=== PATIENT | female | born 1960 | race Caucasian/White ===

== ENCOUNTER → 2018-06-25 10:08 | Outpatient (CLI) | payer BC, SELFPAY ==
--- NOTE | 2018-06-25 10:05 | DI.REPORT_ITS ---
SYMPTOM/DIAGNOSIS: RT KNEE INJURY RIGHT KNEE: Three views. No acute fracture or dislocation is identified. No radiopaque foreign bodies are seen in the soft tissues. IMPRESSION: No acute abnormality.
== END ==
PROVIDERS: PCP Internal Medicine; Visit Provider Physician Assistant
DX: M25.561 Pain in right knee (principal); S89.91XA Unspecified injury of right lower leg, initial encounter
CPT/HCPCS: 73562

== ENCOUNTER 2018-09-15 14:20 | Outpatient (CLI) | payer BC, SELFPAY ==
--- NOTE | 2018-09-15 14:15 | DI.RAD_ITS ---
SYMPTOMS/DIAGNOSIS: KNEE PAIN LEFT KNEE: The femoral tibial joint spaces are well maintained. There is minimal periarticular spurring. There is mild spurring at the articular aspect of the patella. No joint effusion is visible. IMPRESSION: Minimal degenerative changes.
== END 2018-09-15 14:40 ==
PROVIDERS: PCP Internal Medicine; Visit Provider Physician Assistant Surgical
DX: M25.562 Pain in left knee (principal); M17.12 Unilateral primary osteoarthritis, left knee
CPT/HCPCS: 73562

== ENCOUNTER 2018-12-09 11:18 | Outpatient (REF) | payer BC, SELFPAY | END 2018-12-09 11:38 | LOC: LBN 11:18 | PROVIDERS: PCP Internal Medicine; Visit Provider Family Medicine | DX: J06.9 Acute upper respiratory infection, unspecified (principal) | CPT/HCPCS: 87449 ==

== ENCOUNTER 2019-01-13 00:14 | Outpatient (CLI) | payer BC, SELFPAY ==
--- NOTE | 2019-01-13 11:17 | DI.MAMMO_ITS ---
SYMPTOM/DIAGNOSIS: SCREENING, Z12.31 MAMMOGRAMS: Mammograms were interpreted according to the usual protocol including computer analysis with CAD system, tomosynthesis and C view imaging. Comparison with prior examinations. Breast density A. No suspicious masses or microcalcifications are seen. There is no definite evidence of malignancy. IMPRESSION: Negative mammogram. Routine screening is recommended. Category I. MQSA ASSESSMENT OF FINDINGS: Negative. Category 1. Patient will receive a letter notifying them of these results. BI-RAD category A. The breasts are almost entirely fatty.
== END 2019-01-13 00:34 ==
PROVIDERS: PCP Internal Medicine; Visit Provider Obstetrics & Gynecology Gynecology
DX: Z12.31 Encounter for screening mammogram for malignant neoplasm of breast (principal)
CPT/HCPCS: 77063; 77067

== ENCOUNTER 2020-04-12 01:37 | Outpatient (CLI) | payer BC, SELFPAY ==
--- NOTE | 2020-04-12 07:45 | DI.MAMMO_ITS ---
EXAM: MG MAMMO SCREENING CLINICAL HISTORY: screening, TECHNIQUE: Bilateral full field digital CC and MLO mammographic images were obtained with 3D tomosyn thesis and utilizing computer aided detection (CAD). COMPARISON: Available for comparison. FINDINGS: Masses/Architectural Distortion: None seen. Microcalcifications: No suspicious pleomorphic-type are seen. Skin Thickening/Nipple Retraction: None. IMPRESSION: 1. No significant interval change with no specific features of malignancy noted. 2. Unless there is more urgent need, screening mammography is recommended, as per [employer] guidelines. BI-RADS Category 1 - Negative Breast Density - Category A - Almost entirely fatty A negative radiographic report should not delay biopsy if a dominant or clinically suspicious mass is present. Up to ten percent of cancers are not identified on mammography. A negative report may reinforce clinical impression. Adenosis and dense breasts may obscure an underlying neoplasm. False positive reports average 6 to 10%. Patient will receive a letter notifying them of these results.
== END 2020-04-12 01:57 ==
PROVIDERS: PCP Nurse Practitioner; Visit Provider Obstetrics & Gynecology
DX: Z12.31 Encounter for screening mammogram for malignant neoplasm of breast (principal)
CPT/HCPCS: 77063; 77067

== ENCOUNTER 2021-01-12 02:33 | Outpatient (CLI) | payer BC, SELFPAY ==
[2021-01-13 13:42] LABS: COVID-19 RT-PCR UVMMC Result Negative (Negative)
== END 2021-01-12 02:34 | disposition home or self-care (01) ==
LOC: LBO 02:34
PROVIDERS: PCP Nurse Practitioner; Visit Provider Nurse Practitioner
DX: Z20.822 Contact with and (suspected) exposure to COVID-19 (principal)
CPT/HCPCS: U0003

== ENCOUNTER 2021-02-01 03:17 | Outpatient (CLI) | payer BC, SELFPAY ==
[2021-02-02 13:19] LABS: COVID-19 RT-PCR UVMMC Result Negative (Negative)
== END 2021-02-01 03:18 | disposition home or self-care (01) ==
LOC: LBO 03:18
PROVIDERS: PCP Nurse Practitioner; Visit Provider Nurse Practitioner
DX: Z20.822 Contact with and (suspected) exposure to COVID-19 (principal)
CPT/HCPCS: U0003

== ENCOUNTER 2021-04-10 02:48 | Outpatient (CLI) | payer BC, SELFPAY ==
[2021-04-11 13:24] LABS: COVID-19 RT-PCR UVMMC Result Negative (Negative)
== END 2021-04-10 02:49 | disposition home or self-care (01) ==
LOC: LBO 02:48
PROVIDERS: PCP Nurse Practitioner; Visit Provider Nurse Practitioner
DX: Z20.822 Contact with and (suspected) exposure to COVID-19 (principal)
CPT/HCPCS: U0003

== ENCOUNTER 2021-07-01 15:00 | Emergency (ER) | payer BC, SELFPAY ==
[2021-07-01 15:07] VITALS: BP 142/55; PULSE 92; RESP 18; TEMP 37.1; O2SAT 96
--- NOTE | 2021-07-01 15:07 | ED.GENADUL_ITS ---
Discharge Plan Disposition Patient Disposition: HOME Condition: Stable Discharge Details Clinical Impression: Hypokalemia, Vomiting, Epigastric abdominal pain, Cholelithiasis, Cellulitis of left ankle Primary Care Provider: Rosa Elena Weir ED Provider: Betsey Lucio Home Meds and New Rx's Prescriptions: New sucralfate [Carafate] 1 gram tablet 1 gm PO QACHS Qty: 14 RF: 0 doxycycline hyclate 100 mg tablet 100 mg PO BID 7 Days Qty: 14 RF: 0 Continued (DME) Aerochamber Mini spacer See Dose Instructions .ROUTE .MEDSUPPLY Qty: 1 RF: 0 cyanocobalamin (vitamin B-12) [Vitamin B-12] 1,000 MCG tablet 1,000 mcg PO DAILY RF: 0 lysine 500 MG tablet 500 mg PO DAILY RF: 0 cholecalciferol (vitamin D3) [Vitamin D3] 2,000 UNIT capsule 2,000 unit PO DAILY RF: 0 multivitamin [Daily Multi-Vitamin] 1 EACH tablet 1 ea PO DAILY Qty: 1 RF: 0 albuterol sulfate [ProAir HFA] 90 mcg/actuation HFA aerosol inhaler 1 - 2 puff Inhalation Q4H PRN Qty: 1 RF: 0 budesonide-formoterol [Symbicort] 160-4.5 mcg/actuation HFA aerosol inhaler 2 puff Inhalation BID Qty: 1 RF: 11 losartan 50 mg tablet 50 mg PO DAILY Qty: 90 RF: 4 scopolamine base 1 mg over 3 days patch 3 day 1 patch transdermal Q3D PRN (Reason: nausea and vomiting) Qty: 4 RF: 0 Discharge Instructions Instructions: Cellulitis (ED), Hypokalemia (ED), Epigastric Pain (ED) Additional Instructions: Avoid high fat or fried foods while you are symptoms of indigestion, nausea, and abdominal pain are still present. Take [id number] Prilosec once daily for the next 2 weeks. Take the Carafate prescription as directed. Take the antibiotic prescription as directed until finished. Continue to mon itor your ankle pain and redness. If it worsens, return to the emergency department for reevaluation. Your liver function tests were elevated today. Follow-up with your primary care doctor for recheck of these enzymes. Your potassium level was low today. This may be due to your losartan and your recent vomiting. You can supplement potassium in your diet with bananas, tomatoes, spinach, kale, garlic etc. Call your primary care doctor's office tomorrow to schedule a follow-up appointment for reevaluation and for referral to surgery for further evaluation of your epigastric pain and indigestion. If your symptoms persist or worsen, you may need an upper endoscopy. Return immediately to the emergency department if you develop any worsening or new concerning symptoms. Referrals: Margarita Rae DO [OSTEOPATHIC DOCTOR] - Discharge Data Discharge Date/Time-TO BE ENTERED AT DEPARTURE: 07/01/21 19:30 Discharge Physician: Betsey Lucio Medical Decision Making 60yo F with a history of morbid obesity, hypertension, hyperlipidemia, and tubal ligation who presents to the ED w/ vomiting and epigastric pain for 2 days, now with belching and and sensation of indigestion for the past 4 days in addition to a left ankle lesion with worsening surrounding redness for the past few days. Patient appears comfortable. Abdomen is soft and minimally tender in the left upper quadrant. Her lungs are clear. Her left ankle lesion does note some white discoloration in the center with surrounding erythema consistent with cellulitis. There is no evidence of fluctuance consistent with abscess. For her belching and indigestion, considering her age and history an EKG was obtained which notes a rate of 89, sinus, no STEMI and nondiagnostic. Will obtain screening labs, CT chest abdomen and pelvis and give Pepcid, GI cocktail and Carafate and reassess. For her left ankle lesion, I do suspect a cellulitis but unclear if this is secondary to an insect bite. Will obtain repeat ESR and CRP and left ankle x-ray. Labs reviewed. White blood cell count normal. ESR 53. CRP 10.62. Potassium low at 2.7, likely secondary to her losartan, will replete. Mild elevation of LFTs which has been much higher 10 years ago and then normalized. Troponin negative. Lipase normal. Left ankle X-ray unremarkable. CT chest negative. CT abdomen pelvis notes cholelithiasis but no cholecystitis with a 12 mm indeterminate liver lesion. Results discussed with patient. She states she feels much better and feels good to go home. Her allergy list noted IV and oral contrast. She denies any history of anaphylaxis to this and states it was GI symptoms 40 years ago. She agreed with proceeding with the CT and had no adverse reaction. Her chart notes an allergy to sulfa and Keflex. Patient states she does not want a strong antibiotic due to concern for worsening GI symptoms. We will treat the left ankle cellulitis with doxycycline. She is advised on dietary rec ommendations for potassium supplementation. Advised to follow up with the primary care doctor for re-evaluation. Usual and customary return precautions given prior to discharge. Medical Records Medical records reviewed: Yes I reviewed the patient's medical records. Imaging Data Radiologic Study: Radiologist's impression: CT Chest With Contrast; Diagnostic Exam date and time: 07/01/2021 4:01 PM Age: 60 years old Clinical indication: Patient HX: Indigestion, ruq/epigastric pain. R/O cholecystitis, gastritis TECHNIQUE: Imaging protocol: Diagnostic computed tomography of the chest with contrast. 3D rendering (Not supervised by radiologist): MIP and/or 3D reconstructed images were created by the technologist. Radiation optimization: All CT scans at this facility use at least one of these dose optimization techniques: automated exposure control; mA and/or kV adjustment per patient size (includes targeted exams where dose is matched to clinical indication); or iterative reconstruction. Contrast material: OMNIPAQUE; Contrast volume: 100 ml; Contrast route: INTRAVENOUS (IV); COMPARISON: No relevant prior studies available. FINDINGS: Lungs: No nodules. No consolidation. No masses. Pleural spaces: Unremarkable. No pneumothorax. No pleural effusion. Heart: Unremarkable. No cardiomegaly. No pericardial effusion. Aorta: Unremarkable. No aortic aneurysm or dissection. Lymph nodes: Unremarkable. No enlarged lymph nodes. Bones/joints: Unremarkable. No acute fracture. Soft tissues: Unremarkable. IMPRESSION: Unremarkable CT of the chest. CT Abdomen And Pelvis With Contrast Exam date and time: 07/01/2021 4:01 PM Age: 60 years old Clinical indication: Patient HX: Indigestion, ruq/epigastric pain. R/O cholecystitis, gastritis TECHNIQUE: Imaging protocol: Computed tomography of the abdomen and pelvis with contrast. 3D rendering (Not supervised by radiologist): MIP and/or 3D reconstructed images were created by the technologist. Radiation optimization: All CT scans at this facility use at least one of these dose optimization techniques: automated exposure control; mA and/or kV adjustment per patient size (includes targeted exams where dose is matched to clinical indication); or iterative reconstruction. Contrast material: OMNIPAQUE; Contrast volume: 100 ml; Contrast route: INTRAVENOUS (IV); COMPARISON: No relevant prior studies available. FINDINGS: Lungs: The visualized lung bases are clear. Liver: There is a 12 mm indeterminate low-density lesion in the posterior dome of the liver measuring over 30 Hounsfield units in attenuation. Gallbladder and bile ducts: A gallstone is present. No evidence for gallbladder wall thickening. Pancreas: Unremarkable. No ductal dilation. Spleen: Unremarkable. No splenomegaly. Adrenal glands: Unremarkable. No mass. Kidneys and ureters: Unremarkable. No hydronephrosis. No evidence for nephrolithiasis. Stomach and bowel: Unremarkable. No obstruction. No mucosal thickening. Appendix: No evidence of appendicitis. Intraperitoneal space: Unremarkable. No free air. No significant fluid collection. Vasculature: Unremarkable. No abdominal aortic aneurysm. Lymph nodes: Unremarkable. No enlarged lymph nodes. Urinary bladder: Unremarkable as visualized. Reproductive: Unremarkable as visualized. Bones/joints: Unremarkable. No acute fracture. Soft tissues: Unremarkable. IMPRESSION: 1. Cholelithiasis. No evidence for acute cholecystitis. 2. Indeterminate 12 mm low-density lesion in the dome of the liver. This can be further evaluated with dedicated contrast-enhanced CT with liver protocol. XR Left Ankle Exam date and time: 07/01/2021 4:09 PM Age: 60 years old Clinical indication: Other: Cellulitis vs osteomyelitis TECHNIQUE: Imaging protocol: XR Left ankle. Views: 3 or more views. COMPARISON: No relevant studies available. FINDINGS: Bones/joints: No evidence for a fracture. Alignment is anatomic. The joint spaces are preserved. The ankle mortise is congruent. Soft tissues: Unremarkable. IMPRESSION: Unremarkable radiographic study. No bony changes to suggest osteomyelitis. However, if this is of clinical concern, recommend MRI. Lab Data Lab results reviewed: Yes I reviewed the patient's lab results. Labs: Laboratory Tests Range/Units 07/01/21 07/01/21 07/01/21 15:30 15:30 15:30 WBC (4.4-10.8) 10^3/uL RBC (3.93-5.22) 10^6/uL Hgb (11.2-15.7) g/dL Hct (36.0-46.0) % MCV (80-95) fL MCH (27.0-33.0) pg MCHC (32.0-36.0) % RDW (11.7-14.6) % Plt Count (130-400) 10^3/uL MPV (8.0-11.0) fL Immature Gran % Neutrophils % Lymphocytes % Monocytes % Eosinophils % Basophils % Nucleated RBC % % Absolute Neutrophils (1.2-6.7) 10^3/uL Absolute Lymphocytes (1.2-3.4) 10^3/uL Absolute Monocytes (0.1-0.8) 10^3/uL Absolute Eosinophils (0.0-0.7) 10^3/uL Absolute Basophils (0.0-0.2) 10^3/uL ESR (0-30) mm/hr 53 H Sodium (136-145) mmol/L 138 Potassium (3.5-5.1) mmol/L 2.7 L* Chloride (98-107) mmol/L 102 Carbon Dioxide (21.0-32.0) mmol/L 26.8 Anion Gap (3-11) mmol/L 9.2 BUN (7-18) mg/dL 16 Creatinine (0.55-1.02) mg/dL 0.8 Estimated GFR/1.73 m2 (mL/min/1.73m2) >= 60.00 Glucose (74-106) mg/dL 126 H Calcium (8.5-10.1) mg/dL 9.0 Magnesium (1.8-2.4) mg/dL 2.0 Total Bilirubin (0.2-1.0) mg/dL 0.4 AST (15-37) U/L 41 H ALT (14-59) U/L 100 H Alkaline Phosphatase (46-116) U/L 145 H Troponin I (<0.06) ng/mL < 0.05 C-Reactive Protein (0.0-0.3) mg/dL 10.62 H Total Protein (6.4-8.2) g/dL 7.1 Albumin (3.4-5.0) g/dL 3.1 L Lipase (73-393) U/L 119 Range/Units 07/01/21 15:30 WBC (4.4-10.8) 10^3/uL 8.43 RBC (3.93-5.22) 10^6/uL 4.42 Hgb (11.2-15.7) g/dL 13.6 Hct (36.0-46.0) % 40.0 MCV (80-95) fL 90.5 MCH (27.0-33.0) pg 30.8 MCHC (32.0-36.0) % 34.0 RDW (11.7-14.6) % 12.7 Plt Count (130-400) 10^3/uL 223 MPV (8.0-11.0) fL 10.6 Immature Gran % 0.2 Neutrophils % 71.7 Lymphocytes % 17.7 Monocytes % 8.2 Eosinophils % 1.5 Basophils % 0.7 Nucleated RBC % % 0 Absolute Neutrophils (1.2-6.7) 10^3/uL 6.04 Absolute Lymphocytes (1.2-3.4) 10^3/uL 1.49 Absolute Monocytes (0.1-0.8) 10^3/uL 0.69 Absolute Eosinophils (0.0-0.7) 10^3/uL 0.13 Absolute Basophils (0.0-0.2) 10^3/uL 0.06 ESR (0-30) mm/hr Sodium (136-145) mmol/L Potassium (3.5-5.1) mmol/L Chloride (98-107) mmol/L Carbon Dioxide (21.0-32.0) mmol/L Anion Gap (3-11) mmol/L BUN (7-18) mg/dL Creatinine (0.55-1.02) mg/dL Estimated GFR/1.73 m2 (mL/min/1.73m2) Glucose (74-106) mg/dL Calcium (8.5-10.1) mg/dL Magnesium (1.8-2.4) mg/dL Total Bilirubin (0.2-1.0) mg/dL AST (15-37) U/L ALT (14-59) U/L Alkaline Phosphatase (46-116) U/L Troponin I (<0.06) ng/mL C-Reactive Protein (0.0-0.3) mg/dL Total Protein (6.4-8.2) g/dL Albumin (3.4-5.0) g/dL Lipase (73-393) U/L ECG Data Attestation: I personally reviewed and interpreted this ECG (s) as follows: Interpretation: Rate of 89, sinus. T wave inversion in lead III. No acute ST elevation or depression. MS 143. QTc 420. QRS 94. HPI General Mode of arrival: ambulatory . Date/Time Provider Initiated Documentation: 07/01/21 15:07 . Limitations to Documentation: no limitations . Information obtained by: patient . HPI Narrative: Patient is a 60-year-old female with a history of obesity, hypertension, and tubal ligation who presents to the ED with 2 complaints, 1) indigestion, belching, epigastric pain and vomiting for the past week, and 2) possible insect bite to her left ankle over the past week. Patient states she traveled to [place] last week and noted that she had a red tender bump to her left medial ankle which has been progressed with increased redness and pain. She states she did not see an insect bite her but she is unsure of the cause. She is also complaining of 2 days of vomiting which mainly consisted of bile and for the past 4 days has been dry heaving with nausea. She admits to epigastric pain a few days ago that has since resolved. She denies any radiation of pain to her chest or back. She states she has had normal bowel movements without rectal bleeding. She states prior to onset of her symptoms last week she had fried food including an Egg McMuffin, and chocolate dessert. She denies any known fever, difficulty breathing or diarrhea. Related Data Home Medications Medication Instructions Recorded Confirmed cyanocobalamin (vitamin B-12) 1,000 mcg PO DAILY 04/21/13 07/01/21 [Vitamin B-12] lysine 500 mg PO DAILY 04/21/13 07/01/21 cholecalciferol (vitamin D3) 2,000 unit PO DAILY 02/02/14 07/01/21 [Vitamin D3] multivitamin [Daily Multi-Vitamin] 1 ea PO DAILY #1 09/03/17 07/01/21 inhalational spacing device #1 each 12/09/18 07/01/21 albuterol sulfate 90 mcg/actuation 1 - 2 puff INHALATION Q4H PRN #1 05/23/20 07/01/21 aerosol inhaler inhaler budesonide-formoterol HFA 160 2 puff INHALATION BID #1 inhaler 06/01/20 07/01/21 mcg-4.5 mcg/actuation aerosol inhaler losartan 50 mg tablet 50 mg PO DAILY #90 tab 10/14/20 07/01/21 scopolamine base 1 mg over 3 days 1 patch TRANSDERMAL Q3D PRN #4 ea 04/11/21 07/01/21 transdermal patch doxycycline hyclate 100 mg PO BID 7 Days #14 tab 07/01/21 sucralfate [Carafate] 1 gm PO QACHS #14 tab 07/01/21 Previous Rx's Medication Instructions Recorded inhalational spacing device #1 each 12/09/18 albuterol sulfate 90 mcg/actuation 1 - 2 puff INHALATION Q4H PRN #1 05/23/20 aerosol inhaler inhaler budesonide-formoterol HFA 160 2 puff INHALATION BID #1 inhaler 06/01/20 mcg-4.5 mcg/actuation aerosol inhaler losartan 50 mg tablet 50 mg PO DAILY #90 tab 10/14/20 scopolamine base 1 mg over 3 days 1 patch TRANSDERMAL Q3D PRN #4 ea 04/11/21 transdermal patch doxycycline hyclate 100 mg PO BID 7 Days #14 tab 07/01/21 sucralfate [Carafate] 1 gm PO QACHS #14 tab 07/01/21 Allergies Allergy/AdvReac Type Severity Reaction Status Date / Time prochlorperazine edisylate Allergy Severe Anaphylaxsi Verified 07/01/21 15:15 [From Compazine] s prochlorperazine maleate Allergy Severe Anaphylaxsi Verified 07/01/21 15:15 [From Compazine] s Sulfa (Sulfonamide Allergy Intermediate Skin Rash Verified 07/01/21 15:15 Antibiotics) cephalexin AdvReac Intermediate Verified 07/01/21 15:15 Iodinated Contrast Media AdvReac Intermediate GI symptoms Verified 07/01/21 15:15 [Iodinated Contrast- Oral and IV Dye] Review of Systems All systems reviewed & are unremarkable except as noted in HPI and below Constitutional Constitutional: Reports as per HPI, Denies chills and Denies fever(s) Eyes Eyes: Denies blurry vision ENT Ears, Nose, Mouth, and Throat: Denies dizziness, Denies sore throat and Denies throat swelling Cardiovascular Cardiovascular: Denies chest pain and Denies dyspnea Respiratory Respiratory: Denies cough and Denies dyspnea Gastrointestinal Gastrointestinal: Denies abdominal pain, Reports belching, Reports dyspepsia, Denies diarrhea, Reports nausea and Denies vomiting Genitourinary Genitourinary: Denies hematuria and Denies dysuria Musculoskeletal Musculoskeletal: Denies back pain and Denies numbness Integumentary/Breasts Skin/Breast: Reports lesions and Denies rash Neurologic Neurologic: Denies dizziness, Denies localized weakness and Denies numbness Allergic/Immunologic Allergic/Immunologic: Denies throat swelling [facility] Medical History (Updated 07/01/21 @ 18:39 by Betsey Lucio DO) Endometrial hyperplasia without atypia, 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) Family hx-breast malignancy fathers grandmother Hyperlipidemia Hypertension Menopausal syndrome (07/22/12) Surgical History (Updated 09/10/18 @ 14:34 by [employer] [place]) section x 2 Ligation of fallopian tube Family History (Updated 03/21/21 @ 13:37 by Rosa Elena Weir NP) Mother Hyperlipidemia Dementia Hypertension Father Diabetes Heart disease Hyperlipidemia Myocardial infarction Brother Diabetes Heart disease Myocardial infarction Grandmother Personal history of malignant neoplasm BREAST Brother Heart disease Hypertension Myocardial infarction Diabetes Substance abuse Social History (Updated 12/25/18 @ 06:46 by Alejandra Murillo MD) Smoking/Tobacco Use Status: Never Smoking risk assessment performed?: Yes Alcohol Intake: never Drug use: Never Substance use type: does not use Household members: spouse Number of Children: 2 number of grandchildren: 2 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 Female Reproductive History Menstrual control method: implanted (nexplanon Lot #[id number] Exp 04/14) Menopause type: natural (Age 54) History History 2 Para Hx # Term Pregnancies 2 Multiple births Hx # Pregnancies Ectopic pregnancies AB induced Hx Number of Living Children AB spontaneous Exam Const General: cooperative and no acute distress HENMT Head: normal to inspection Face and sinus: normal facial exam Eyes General: appearance normal, both eyes and all related structures EOM: EOM intact bilaterally Neck Neck: normal visual inspection and No submandibular swelling Lymphatic: no lymphadenopathy noted Chest Chest: normal inspection of the chest and no tenderness Resp Effort & Inspection: normal respiratory effort and able to speak in complete sentences Auscultation: clear to auscultation bilaterally Cardio Rate: regular rate Rhythm: regular rhythm GI Inspection: normal to inspection Palpation: soft, not firm, not rigid and nontender Auscultation: normal bowel sounds Neuro General: patient alert, patient awake and patient oriented x3 Cognition: normal cognition Speech: speech normal Motor: muscle tone normal throughout Sensory Exam: no sensory deficits noted Extrem General: full ROM, capillary refill normal, no calf tenderness bilaterally and no edema Ankle/foot/toe images: 1. 1 x 1 cm raised tender papule with white patchy discoloration in center with surrounding erythema extending out approximately 3 cm circumferentially. No cr epitus, induration, fluctuance, drainage or bleeding. Other: Left PT/DP pulses intact. Psych Appearance: grossly normal Mental Status: mental status grossly normal Speech and Movement: speech and movement normal Affect: normal affect
--- NOTE | 2021-07-01 15:15 | RT.EKG_ITS ---
APPROVED REPORT Exam: Resting ECG Reason for Exam: epigastric pain Patient Location: E HR:89 bpm ECG Measurements Heart Rate 89 AXIS IN 143 P 56 QRSd 94 QRS 66 QT 351 T 7 QTc 428 Conclusion Sinus rhythm...normal P axis, V-rate 60- 99. No STEMI. I have reviewed and interpreted ECG and agree with software generated interpretation.
[2021-07-01 15:43] LABS: Abs Immature Grans 0.02 10^3/uL (0.0-0.06); Absolute Basophil Count 0.06 10^3/uL (0.0-0.2); Absolute Eosinophil Count 0.13 10^3/uL (0.0-0.7); Absolute Lymphocyte Count 1.49 10^3/uL (1.2-3.4); Absolute Monocyte Count 0.69 10^3/uL (0.1-0.8); Absolute Neutrophil Count 6.04 10^3/uL (1.2-6.7); Basophils % 0.7; Eosinophils % 1.5; HGB 13.6 g/dL (11.2-15.7); Immature Grans % 0.2; Lymphocytes % 17.7; MCH 30.8 pg (27.0-33.0); MCV 90.5 fL (80-95); MPV 10.6 fL (8.0-11.0); Monocytes % 8.2; Neutrophils % 71.7; Nucleated RBC 0 %; Platelet Count 223 10^3/uL (130-400); RBC 4.42 10^6/uL (3.93-5.22); RDW 12.7 % (11.7-14.6); RDW-SD 42.5 fL; WBC 8.43 10^3/uL (4.4-10.8)
--- NOTE | 2021-07-01 15:45 | DI.CT_ITS ---
Exam(s) CT CHEST/ABD/PEL W EXAM: CT CHEST/ABD/PEL W CLINICAL HISTORY: indigestion, RUQ/epigastric pain TECHNIQUE: CT examination of the chest, abdomen, and pelvis was performed with intravenous infusion of 100 cc of Omnipaque 350. COMPARISON: No exams were available for comparison FINDINGS: The lungs are clear. There is no pleural effusion seen. There is no mediastinal or hilar adenopathy. Pulmonary arteries are unremarkable with no evidence of pulmonary embolic disease. Thoracic aorta and major branches appear intact with no evidence of aneurysm or dissection. No bony abnormality seen in the thorax. The liver contains a 12 millimeter in diameter to intermediate mass at the dome of the liver, this is of indeterminate etiology but may represent a hemangioma period Additional evaluation with hepatic protocol multiphasic CT suggested to confirm this is hemangioma. Gallbladder contains a stone and is otherwise unremarkable. The bile ducts are CT normal. No abnormality seen involving the spleen. Pancreas appears intact. The adrenals are unremarkable in appearance. The kidneys appear intact with no evidence of hydroneph rosis or nephrolithiasis. Abdominal aorta and major visceral branches appear intact. No significant abdominal wall hernia seen. No significant abdominal or pelvic adenopathy. No focal bowel pathology. No evidence of appendicitis or diverticulitis. Pediatric Physical Therapy Assistant structures are unremarkable in appearance for age. IMPRESSION: Cholelithiasis noted. Otherwise negative CT examination of the chest, abdomen, and pelvis. Incidental 12 millimeter indeterminate right hepatic lobe lesion, likely hemangioma, follow-up multip hasic hepatic CT suggested for further characterization. RADIATION DOSE DELIVERED: 970.95mGy.cm Total DLP 970.95mGy.cm Total DLP 15.54mGy CTDIvol
[2021-07-01 15:51] LABS: ESR 53 mm/hr (0-30)
[2021-07-01 15:59] LABS: C-Reactive Protein 10.62 mg/dL (0.0-0.3); Lipase 119 U/L (73-393)
--- NOTE | 2021-07-01 16:00 | DI.RAD_ITS ---
Exam(s) XR ANKLE LT COMPLETE EXAM: XR ANKLE LT COMPLETE CLINICAL HISTORY: cellulitis L ankle, r/o osteomyelitis TECHNIQUE: COMPARISON: No exams were available for comparison FINDINGS: Three views were obtained. There are attachment osteophytes of the Achilles and plantar fascia on th e calcaneus. No evidence of fracture or dislocation. No specific radiographic evidence to suggest o steomyelitis. If there is a high clinical suspicion of osteomyelitis additional evaluation with MRI may be consider ed. IMPRESSION: RADIATION DOSE DELIVERED: Total DLP
[2021-07-01 16:12] LABS: ALT 100 U/L (14-59); AST 41 U/L (15-37); Albumin 3.1 g/dL (3.4-5.0); Alkaline Phosphatase 145 U/L (46-116); Anion Gap 9.2 mmol/L (3-11); BUN 16 mg/dL (7-18); Bilirubin, Total 0.4 mg/dL (0.2-1.0); CO2 26.8 mmol/L (21.0-32.0); CREATININE 0.8 mg/dL (0.55-1.02); Chloride 102 mmol/L (98-107); Glucose 126 mg/dL (74-106); Sodium 138 mmol/L (136-145); Total Protein 7.1 g/dL (6.4-8.2)
[2021-07-01 16:17] LABS: Troponin I < 0.05 ng/mL (<0.06)
[2021-07-01] MEDS: Sucralfate 1 GM TAB PO ×2 (16:17→18:53)
[2021-07-01] MEDS: FAMOTIDINE 20 MG/50 ML BAG 200 MG IVPB (16:17)
[2021-07-01 16:18] LABS: Potassium 2.7 mmol/L (3.5-5.1)
[2021-07-01] MEDS: Normal Saline Flush 10 ML SYR IVP (16:52)
[2021-07-01] MEDS: Normal Saline - Diluent 50 ML VIAL IV (16:52)
[2021-07-01] MEDS: Omnipaque 350 MG/ML 100 ML BTL IJ (16:55)
[2021-07-01] MEDS: Potassium Chloride 20 MEQ TABCR 40 MEQ PO (16:58)
[2021-07-01] MEDS: POTASSIUM CHLORIDE 20 MEQ/100 ML BAG 50 MEQ IVPB (16:58)
--- NOTE | 2021-07-01 17:20 | DI.VRAD_ITS ---
PROCEDURE INFORMATION: Exam: CT Chest With Contrast; Diagnostic Exam date and time: 07/01/2021 4:01 PM Age: 60 years old Clinical indication: Patient HX: Indigestion, ruq/epigastric pain. R/O cholecystitis, gastritis TECHNIQUE: Imaging protocol: Diagnostic computed tomography of the chest with contrast. 3D rendering (Not supervised by radiologist): MIP and/or 3D reconstructed images were created by the technologist. Radiation optimization: All CT scans at this facility use at least one of these dose optimization techniques: automated exposure control; mA and/or kV adjustment per patient size (includes targeted exams where dose is matched to clinical indication); or iterative reconstruction. Contrast material: OMNIPAQUE; Contrast volume: 100 ml; Contrast route: INTRAVENOUS (IV); COMPARISON: No relevant prior studies available. FINDINGS: Lungs: No nodules. No consolidation. No masses. Pleural spaces: Unremarkable. No pneumothorax. No pleural effusion. Heart: Unremarkable. No cardiomegaly. No pericardial effusion. Aorta: Unremarkable. No aortic aneurysm or dissection. Lymph nodes: Unremarkable. No enlarged lymph nodes. Bones/joints: Unremarkable. No acute fracture. Soft tissues: Unremarkable. IMPRESSION: Unremarkable CT of the chest. PROCEDURE INFORMATION: Exam: CT Abdomen And Pelvis With Contrast Exam date and time: 07/01/2021 4:01 PM Age: 60 years old Clinical indication: Patient HX: Indigestion, ruq/epigastric pain. R/O cholecystitis, gastritis TECHNIQUE: Imaging protocol: Computed tomography of the abdomen and pelvis with contrast. 3D rendering (Not supervised by radiologist): MIP and/or 3D reconstructed images were created by the technologist. Radiation optimization: All CT scans at this facility use at least one of these dose optimization techniques: automated exposure control; mA and/or kV adjustment per patient size (includes targeted exams where dose is matched to clinical indication); or iterative reconstruction. Contrast material: OMNIPAQUE; Contrast volume: 100 ml; Contrast route: INTRAVENOUS (IV); COMPARISON: No relevant prior studies available. FINDINGS: Lungs: The visualized lung bases are clear. Liver: There is a 12 mm indeterminate low-density lesion in the posterior dome of the liver measuring over 30 Hounsfield units in attenuation. Gallbladder and bile ducts: A gallstone is present. No evidence for gallbladder wall thickening. Pancreas: Unremarkable. No ductal dilation. Spleen: Unremarkable. No splenomegaly. Adrenal glands: Unremarkable. No mass. Kidneys and ureters: Unremarkable. No hydronephrosis. No evidence for nephrolithiasis. Stomach and bowel: Unremarkable. No obstruction. No mucosal thickening. Appendix: No evidence of appendicitis. Intraperitoneal space: Unremarkable. No free air. No significant fluid collection. Vasculature: Unremarkable. No abdominal aortic aneurysm. Lymph nodes: Unremarkable. No enlarged lymph nodes. Urinary bladder: Unremarkable as visualized. Reproductive: Unremarkable as visualized. Bones/joints: Unremarkable. No acute fracture. Soft tissues: Unremarkable. IMPRESSION: 1. Cholelithiasis. No evidence for acute cholecystitis. 2. Indeterminate 12 mm low-density lesion in the dome of the liver. This can be further evaluated with dedicated contrast-enhanced CT with liver protocol. Dictated and Authenticated by: Gabriel Donaldson MD. Ordering:DORETHA Leggett MD
--- NOTE | 2021-07-01 17:22 | DI.VRAD_ITS ---
PROCEDURE INFORMATION: Exam: XR Left Ankle Exam date and time: 07/01/2021 4:09 PM Age: 60 years old Clinical indication: Other: Cellulitis vs osteomyelitis TECHNIQUE: Imaging protocol: XR Left ankle. Views: 3 or more views. COMPARISON: No relevant studies available. FINDINGS: Bones/joints: No evidence for a fracture. Alignment is anatomic. The joint spaces are preserved. The ankle mortise is congruent. Soft tissues: Unremarkable. IMPRESSION: Unremarkable radiographic study. No bony changes to suggest osteomyelitis. However, if this is of clinical concern, recommend MRI. Dictated and Authenticated by: Gabriel Donaldson MD. Ordering:DORETHA Leggett MD
[2021-07-01] MEDS: Doxycycline Hyclate 100 MG, 2 CAPS/BTL PO (18:52)
[2021-07-01] MEDS: Doxycycline Hyclate 100 MG CAP PO (18:52)
[2021-07-01 19:24] VITALS: BP 143/59; PULSE 73; O2SAT 97
== END 2021-07-01 19:30 | disposition home or self-care (01) ==
PROVIDERS: Emergency Provider Physician Assistant; PCP Nurse Practitioner
DX: E87.6 Hypokalemia (principal); R10.13 Epigastric pain; K80.20 Calculus of gallbladder without cholecystitis without obstruction; L03.116 Cellulitis of left lower limb
CPT/HCPCS: 36415; 74177; 80053; 83690; 85652; 93005; 96365; 96366; 96367; 99285; 71260; 73610; 83735; 84484; 85025; 86140; 93010; 99284; J3480; J3490

== ENCOUNTER 2021-07-25 03:04 | Outpatient (CLI) | payer BC, SELFPAY ==
[2021-07-25 12:53] LABS: BUN 13 mg/dL (7-18); CREATININE 0.6 mg/dL (0.55-1.02); Chloride 104 mmol/L (98-107); Glucose 86 mg/dL (74-106); Sodium 144 mmol/L (136-145)
[2021-07-25 13:29] LABS: Hemoglobin A1C 5.7 % (<5.7)
== END 2021-07-25 03:05 | disposition home or self-care (01) ==
LOC: LOS 03:04
PROVIDERS: PCP Nurse Practitioner; Visit Provider Nurse Practitioner
DX: I10 Essential (primary) hypertension (principal); E06.9 Thyroiditis, unspecified; N95.1 Menopausal and female climacteric states; Z13.1 Encounter for screening for diabetes mellitus
CPT/HCPCS: 36415; 80048; 83036; 84443

== ENCOUNTER 2021-08-29 01:04 | Outpatient (CLI) | payer BC, SELFPAY ==
--- NOTE | 2021-08-29 07:15 | DI.MAMMO_ITS ---
Exam(s) MAMMO SCREENING EXAM: MAMMO SCREENING CLINICAL HISTORY: screening,Z12.39 TECHNIQUE: Bilateral full field digital CC and MLO mammographic images were obtained with 3D tomosyn thesis and utilizing computer aided detection (CAD). COMPARISON: Available for comparison. FINDINGS: Masses/Architectural Distortion: None seen. Microcalcifications: No suspicious pleomorphic-type are seen. Skin Thickening/Nipple Retraction: None. IMPRESSION: 1. No significant interval change with no specific features of malignancy noted. 2. Unless there is more urgent need, screening mammography is recommended, as per [employer] guidelines. BI-RADS Category 1 - Negative Breast Density - Category A - Almost entirely fatty Breast density category C or D implies that the patient has dense breast tissue. Dense breast tissue is very common and is not abnormal but dense breast tissue can make it harder to find cancer on a ma mmogram. Also, dense breast tissue may increase their breast cancer risk. This information about the result of the mammogram report was provided to the patient to raise their awareness. Use this report when you speak with the patient about their risks for breast cancer, which includes their family hist ory. At that time, you may recommend for more screening tests (Ultrasound or MRI) as they might be us eful based on their risk. A negative radiographic report should not delay biopsy if a dominant or clinically suspicious mass is present. Up to ten percent of cancers are not identified on mammography. A negative report may reinforce clinical impression. Adenosis and dense breasts may obscure an underlying neoplasm. False positive reports average 6 to 10%. Patient will receive a letter notifying them of these results.
== END 2021-08-29 01:24 ==
PROVIDERS: PCP Nurse Practitioner; Visit Provider Nurse Practitioner
DX: Z12.31 Encounter for screening mammogram for malignant neoplasm of breast (principal)
CPT/HCPCS: 77063; 77067

== ENCOUNTER 2022-06-01 10:47 | Outpatient (CLI) | payer BC, SELFPAY ==
[2022-06-01 12:49] LABS: HCT 40.9 % (36.0-46.0); HGB 13.9 g/dL (11.2-15.7); MCH 31.2 pg (27.0-33.0); MCV 92 fL (80-95); MPV 10.6 fL (8.0-11.0); Platelet Count 278 10^3/uL (130-400); RBC 4.45 10^6/uL (3.93-5.22); RDW 12.8 % (11.7-14.6); RDW-SD 43.1 fL
== END 2022-06-01 10:48 | disposition home or self-care (01) ==
LOC: LOS 10:48
PROVIDERS: PCP Nurse Practitioner; Visit Provider Nurse Practitioner
DX: R10.32 Left lower quadrant pain (principal)
CPT/HCPCS: 36415; 85027

== ENCOUNTER 2022-08-20 02:47 | Outpatient (CLI) | payer BC, SELFPAY ==
[2022-08-20 12:42] LABS: ALT 42 U/L (14-59); AST 29 U/L (15-37); Albumin 3.4 g/dL (3.4-5.0); Alkaline Phosphatase 100 U/L (46-116); Anion Gap 6.4 mmol/L (3-11); BUN 22 mg/dL (7-18); Bilirubin, Total 0.3 mg/dL (0.2-1.0); CO2 32.6 mmol/L (21.0-32.0); CREATININE 0.6 mg/dL (0.55-1.02); Calcium 9.1 mg/dL (8.5-10.1); Chloride 102 mmol/L (98-107); Estimated GFR 102.06 (mL/min/1.73m2); Glucose 126 mg/dL (74-106); Potassium 4.3 mmol/L (3.5-5.1); Sodium 141 mmol/L (136-145); Total Protein 7.3 g/dL (6.4-8.2)
== END 2022-08-20 02:48 | disposition home or self-care (01) ==
LOC: LOS 02:47
PROVIDERS: PCP Nurse Practitioner; Visit Provider Nurse Practitioner Family
DX: R79.89 Other specified abnormal findings of blood chemistry (principal)
CPT/HCPCS: 36415; 80053

== ENCOUNTER 2022-09-03 10:59 | Outpatient (REF) | payer BC, SELFPAY ==
--- NOTE | 2022-09-03 10:30 | PAPFT_PTH ---
PATIENT: Lenora Joy LOC: [facility] U#:[id number] AGE/SX: 61/F ROOM: RE09/03/[address]: Kristi Begum NP : 1960 BED: DIS: 09/03/2022 SPEC #: [id number] RECD: 09/03/22 12:57 STATUS: ARMAAN REAman #: [id number] RANDOLPH: 09/03/22 10:[address]: Kristi Begum NP DEPT: [facility] Cytology RECD BY: Noris Wright ENTERED: 09/03/22 12:58 SP TYPE: PAPFT OTHR DR: Rosa Elena Weir, PhD [employer]IST Tissues: 1 - CX/ENDOCX FOR PAP SMEARS Procedures: PAP THIN PREP/[facility] Screening HPV DNA PROBE Comments: [id number]
== END 2022-09-03 11:00 | disposition home or self-care (01) ==
LOC: LBN 10:59
PROVIDERS: PCP Nurse Practitioner; Visit Provider Nurse Practitioner Women's Health
DX: Z12.4 Encounter for screening for malignant neoplasm of cervix (principal); Z11.51 Encounter for screening for human papillomavirus (HPV)
CPT/HCPCS: 88142; 87624

== ENCOUNTER → 2022-09-05 00:51 | Outpatient (CLI) | payer BC, SELFPAY ==
--- NOTE | 2022-09-05 07:00 | DI.MAMMO_ITS ---
Exam(s) MAMMO SCREENING EXAM: MAMMO SCREENING CLINICAL HISTORY: screening,Z12.39 TECHNIQUE: Mammograms were interpreted according to the usual protocol including computer analysis w [employer] CAD system, tomosynthesis and C-view imaging. COMPARISON: FINDINGS: The breasts are of moderate density with fairly symmetrical distribution of fibroglandular tissue. N o dominant mass or clumped microcalcification is identified in either breast. The current examinatio n is compared with previous examinations including August 2021 and there has been no gross interval change in appearance in comparison with the prior studies. IMPRESSION: No specific evidence of malignancy at this time. Routine screening examinations are suggested at yea rly intervals due to the family history of breast carcinoma. BI-RADS Category 1 - Negative Breast Density - Category B - Scattered areas of fibroglandular density
== END ==
PROVIDERS: PCP Nurse Practitioner; Visit Provider Nurse Practitioner Family
DX: Z12.31 Encounter for screening mammogram for malignant neoplasm of breast (principal)
CPT/HCPCS: 77063; 77067

== ENCOUNTER 2023-05-15 13:53 | Outpatient (CLI) | payer BC, SELFPAY ==
--- NOTE | 2023-05-15 13:45 | RT.EKG_ITS ---
APPROVED REPORT Exam: Resting ECG Reason for Exam: Hypertention Patient Location: O HR:82 bpm ECG Measurements Heart Rate 82 AXIS FL 150 P 59 QRSd 100 QRS 64 QT 388 T 24 QTc 453 Conclusion Sinus rhythm...normal P axis, V-rate 50- 99 Normal Electrocardiogram
== END 2023-05-15 13:54 | disposition home or self-care (01) ==
LOC: DI.CM 13:58
PROVIDERS: PCP Nurse Practitioner Family; Visit Provider Nurse Practitioner Family
DX: R06.02 Shortness of breath (principal); I10 Essential (primary) hypertension
CPT/HCPCS: 93010

== ENCOUNTER 2023-05-22 02:46 | Outpatient (CLI) | payer BC, SELFPAY ==
[2023-05-22 11:05] LABS: ALT 51 U/L (14-59); AST 26 U/L (15-37); Albumin 3.6 g/dL (3.4-5.0); Alkaline Phosphatase 96 U/L (46-116); Anion Gap 6.7 mmol/L (3-11); BUN 15 mg/dL (7-18); Bilirubin, Total 0.5 mg/dL (0.2-1.0); CO2 32.3 mmol/L (21.0-32.0); CREATININE 0.7 mg/dL (0.55-1.02); Calcium 9.2 mg/dL (8.5-10.1); Calculated LDL 167 mg/dL (<100); Chloride 103 mmol/L (98-107); Cholesterol 262 mg/dL (<200); Estimated GFR 97.72 (mL/min/1.73m2); Glucose 101 mg/dL (74-106); HDL Cholesterol 62 mg/dL (40-60); Potassium 3.6 mmol/L (3.5-5.1); Sodium 142 mmol/L (136-145); Total Protein 7.2 g/dL (6.4-8.2); Triglyceride 167 mg/dL (<150)
== END 2023-05-22 02:47 | disposition home or self-care (01) ==
LOC: LOS 02:46
PROVIDERS: PCP Nurse Practitioner Family; Visit Provider Nurse Practitioner Family
DX: Z13.220 Encounter for screening for lipoid disorders (principal)
CPT/HCPCS: 36415; 80053; 80061

== ENCOUNTER → 2023-09-24 01:10 | Outpatient (CLI) | payer BC, SELFPAY ==
--- NOTE | 2023-09-24 08:00 | DI.MAMMO_ITS ---
Exam(s) MAMMO SCREENING EXAM: MAMMO SCREENING CLINICAL HISTORY: screening, Z12.39 TECHNIQUE: Bilateral full field digital CC and MLO mammographic images were obtained with 3D tomosyn thesis and utilizing computer aided detection (CAD). COMPARISON: Available for comparison. FINDINGS: Masses/Architectural Distortion: None seen. Microcalcifications: No suspicious pleomorphic-type are seen. Skin Thickening/Nipple Retraction: None. IMPRESSION: 1. No significant interval change with no specific features of malignancy noted. 2. Unless there is more urgent need, screening mammography is recommended, as per [employer] guidelines. BI-RADS Category 1 - Negative Breast Density - Category B - Scattered areas of fibroglandular density Breast density category C or D implies that the patient has dense breast tissue. Dense breast tissue is very common and is not abnormal but dense breast tissue can make it harder to find cancer on a ma mmogram. Also, dense breast tissue may increase their breast cancer risk. This information about the result of the mammogram report was provided to the patient to raise their awareness. Use this report when you speak with the patient about their risks for breast cancer, which includes their family hist ory. At that time, you may recommend for more screening tests (Ultrasound or MRI) as they might be us eful based on their risk. A negative radiographic report should not delay biopsy if a dominant or clinically suspicious mass is present. Up to ten percent of cancers are not identified on mammography. A negative report may reinforce clinical impression. Adenosis and dense breasts may obscure an underlying neoplasm. False positive reports average 6 to 10%. Patient will receive a letter notifying them of these results.
== END ==
PROVIDERS: PCP Nurse Practitioner Family; Visit Provider Nurse Practitioner Women's Health
DX: Z12.31 Encounter for screening mammogram for malignant neoplasm of breast (principal)
CPT/HCPCS: 77063; 77067

== ENCOUNTER 2024-02-07 06:20 | Day surgery (SDC) | payer BC, SELFPAY ==
--- NOTE | 2024-02-06 11:03 | W.COLOREPORT ---
Date of service: 02/07/24 Time of Service: 08:09 Colonoscopy Report Date of procedure: 02/07/24 Pre-op diagnosis general: change in bowel habits/diarrhea/diverticula Post-op diagnosis procedure note: other (Diverticular disease/rectal polyp) Surgeon: Margarita Rae Anesthesia Type: General:No Airway Estimated blood loss (mL): 1 Pathology: other Complications: None Disposition: same day Prep: Miralax/Dulcolax Retraction Time: 11 Procedure Description: After informed consent was obtained the patient was taken to the procedure room and placed in a left decubitous position. Monitors were applied and a time out was done. The patients name, date of , procedure, allergies to medications and metal in their body was reviewed. The patient was then sedated. Once sedated and comfortable a rectal exam was done. External exam was normal. Internal exam revealed a normal sphincter tone and no palpable masses. The scope was then introduced and retrofelexed. No internal hemorrhoids were identified. The scope was then advanced to the cecum without difficulty. The TI and appendiceal orifice were identified. The scope was then slowly retracted over 11 minutes back into the rectum. There are no AVMs. She has a few small scattered diverticula in the sigmoid colon. There is no signs of active bleeding or infection. There is a 3 mm polyp in the rectum that is most likely benign. It is removed for pathology with a cold biting forcep. All specimen is retrieved and no bleeding is noted.. The scope was removed and the patient was woken up and taken back to Same day surgery in stable condition. The patient tolerated the procedure well and there were no immediate complications. Follow up: The patient should follow up in 7-10 years unless they develop changes in bowel habits or other new gastrointestinal complaints. [place] Bowel Prep Princeton Bowel Prep Right Colon: 3 Left Colon: 3 Transverse Colon: 3 Total Score: 9
--- NOTE | 2024-02-06 11:08 | HPE_ITS ---
Date of service: 02/07/24 Time of Service: 07:29 Assessment and Plan Assessment and plan (1) Hypertension: Status: Chronic (2) Prediabetes: Status: Acute (3) Cholelithiasis: Status: Acute (4) Elevated LFTs: Status: Acute (5) Change in bowel movement: Status: Acute Assessment and plan: Plan: Colonoscopy w/ general & natural airway. The?patient will be scheduled by my office. Informed consent is obtained for the procedural (explained in simple layman's terms that?the pt and/or family could understand) explaining risks vs benefits and alternatives to the procedure and consequences if we do not do the procedure and need/rational for the procedure. Risks include but are not limited to: bleeding, infection, perforation of colon.? This would necessitate emergency surgery to repair the damage w/ possible ostomy; and other associated complications w/ the required surgery. ? Also complications of anesthesia including aspiration, ID/CVA/, inability to complete the procedure. I discussed with the?patient would they could expect during the procedure, post procedure and recovery time and risks.? The patient understands that they need to have a ride home after the procedure.? The patient was given all this information in writing and expressed understanding. (6) Diverticula of colon: Status: Acute (7) Chronic diarrhea: Status: Acute (8) LLQ abdominal pain: Status: Acute (9) Unspecified asthma, uncomplicated: Status: Acute (10) Postmenopausal: Status: Acute (11) Hyperlipidemia: History of Present Illness Narrative: Patient is here today for colonoscopy for change in bowel habits/diarrhea/hx divertic.??? They completed a bowel prep with just a clear yellow/brownish residual effluent.? They not having any chest pain or shortness of breath, currently.? They are not experiencing any fever or chills.? They deny any productive cough or upper respiratory tract infection signs or symptoms.? They are not having abdominal pain, or nausea and vomiting.? They have not had any changes in medications, past medical history or past surgical history since previously being seen in the office. They have not had any accidents or have been in the ER since the clinic pre-operative evaluation. ??I reviewed the procedure with the patient today, including risks and benefits of the procedure, and what they could expect at home for recovery.? All questions are answered to the patient?s satisfaction today, and they are stable to proceed with the proposed procedure. :Pt reports she has been having lower abdominal pain, has history of diverticulitis per patient, denies rectal bleeding, does note change in shape of her stools from flat to ribbon like. LLQ pain CE: 2014 The patient was placed in the left lateral position. Rectal exam was performed. No masses were noted. The scope was advanced through the anus, into the rectum, through the sigmoid colon, all the way to the cecum. The cecum was well visualized the light was seen in the right lower quadrant on the anterior abdominal wall. Appendiceal orifice was also well visualized. The scope was gradually withdrawn inspecting the bowel pate carefully. At 50 cm. there was a solitary sessile polyp a few mm. in diameter. This was biopsied and cauterized. The scope was then withdrawn back into the rectum, retroflexed and removed. The patient was sent to the Day Surgery Unit in satisfactory condition. Gross Pathology: Patient with an adequate prep with good visualization to the cecum. There were some scattered sigmoid diverticula. Path- benighn Today Pt has a hx of loose bowels. no blood in stools. no problems w/ control. She will go 2-3 times a day,. every day. . She hasn't noted the diarrhea is related to diet. The diarrhea is worse w/ salads. The diarrhea does not seem to be related to fatty foods. H/I- occ indigestion. no unexplained wt loss. occ ruq and radiates across to the left. Sometimes she will get back pain. Pain/back pain. The symptoms are very random and vague. She is not sure if they happen more so in the morning or towards the end of the day. She cannot really relate them to anything she eats. /doesn't eat pork or dairy. With her last colonoscopy, she had + n/v w/ prep. She did the miralax prep last time and had N/V. Her son had GB out. he has chronic diarrhea.. Her mother had her gallbladder out as well. We discussed gallstone disease and its natural progression. At some point I think she is definitely going to need to have her gallbladder out. I did review her MRI or CT. She has a 1.5 2.6 cm stone. Right now her symptoms are extremely minimal. We discussed that gallbladder disease is often very slow in onset and progression. We discussed warning by signs and and things to watch through for that could indicate progression of symptoms. We briefly discussed gallbladder surgery as well. We discussed that it is much easier for the patient and safer if she has her gallbladder out when she has minimal symptoms and if she has severe symptoms/infection. She also has been having some mild cramping left lower quadrant pain. This comes and goes. She does have a history of diverticula. She has not noticed any blood in her stools. It has not lasted for more than a day. We discussed the importance of avoiding straining and a high-fiber diet. She does have a history of diverticula. She is due for a routine colonoscopy. Pt has had olon cancer screening before.? They deny any pain or difficulty with bowel movements, or rectal bleeding.? There is no family history of any colon cancer.? Pt has not had any weight loss.? Their appetite is good.? ?They deny heart, lung, or kidney problems. They are not having heartburn or indigestion. They have not had any prior colo-rectal surgery.? She has not had a prior MUNA.? They deny any problems with anesthesia in the past. She had severe nausea and vomiting with the prep in the past. She was given a prescription for Zofran and discussed how to use this medication. We also gave her some tips for dealing with nausea. Including drinking the prep very slowly over prolonged timeframe and using a straw. Anesthesia: general (without airway) Previous surgical intolerances: No Previous surgical complications: No Pulmonary risk factors: Former smoker Planned procedure: Yes Sleep apnea risks: No COPD/Asthma/Smoker: None currently Can climb one flight of stairs (12-13 steps) in less than 30 seconds without stopping and without symptoms: Yes The surgery proposed for this patient is: low risk Active cardiac conditions: none Active risk factors: none ASA (acetylsalicylic acid): not used Beta blockers: not used Kidneys: no concerns DM: Prediabetes Review of Systems All systems reviewed & are unremarkable except as noted in HPI and below PFSH All Active Problems Chronic diarrhea (Acute) Diverticula of colon (Acute) Change in bowel movement (Acute) Pelvic pain (Acute) Shortness of breath on exertion (Acute) Postmenopausal (Acute) Elevated LFTs (Acute) LLQ abdominal pain (Acute) Prediabetes (Acute) Cholelithiasis (Acute) Unspecified asthma, uncomplicated (Acute) PFT 2016 No evidence of obstructive airway disease- no bronchodilator response. Hypertension (Chronic) Medical History COVID 08/2021, after immunization, no s/s Hemangioma of liver MRI 06/2021-mri reveals hemangioma 1.5 cm in size, no further imaging indicated based on small size Thyroiditis (03/23/15) elevated FT4 and very low thyroid uptake on scan 2020- TSH wnl 3.0 Menopausal syndrome (07/22/12) Family hx-breast malignancy fathers grandmother Endometrial hyperplasia without atypia, 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) Hyperlipidemia Surgical History History of section x2 History of bilateral ligation of fallopian tubes Family History Mother Hyperlipidemia Dementia Hypertension Father Diabetes Heart disease Hyperlipidemia Myocardial infarction Brother Diabetes Heart disease Myocardial infarction Grandmother Personal history of malignant neoplasm BREAST Brother Heart disease Hypertension Myocardial infarction Diabetes Substance abuse Social History Smoking/Tobacco Use Status: Former Tobacco Use tobacco type: cigarettes Quit Date: 11/25/79 Tobacco: How many years used: 2 Second Hand Exposure: Yes Smoking risk assessment performed?: Yes Alcohol Intake: never Drug use: Never Substance use type: does not use Caregiver/Support person: No Household members: spouse Housing: house Number of Children: 2 number of grandchildren: 2 Communication Needs: None 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 Pets and animals: Yes Pets and animals: cat(s) Sexually active: Yes Do you think of yourself as: straight/heterosexual Current gender identity: female What is your relationship status?: How often do you talk on the phone with friends or family?: three or more times per week How often do you get together with friends or relatives?: twice per week How often do you attend restorationism or zoroastrian services?: decline to answer Do you belong to any clubs or organized social groups?: no Panel score (0-1 are the most socially isolated patients): 2 What type of physical activity do you participate in: walking Duration: 30-45 minutes/day Frequency: 3-4 times per week Fatoumata/Pentecostalism: Mandaeism Special fatoumata needs: No Seatbelt use: always Helmet use: Yes Helmet use: always Drive intox or ride w/intox driver recruiter: No Do you feel safe at home: Yes Do you feel safe in your relationship?: Yes Female Reproductive History Menstrual control method: implanted (nexplanon Lot #[id number] Exp 04/14) Menopause type: natural (Age 54) History History 2 Para Hx # Term Pregnancies 2 Multiple births Hx # Pregnancies Ectopic pregnancies AB induced Hx Number of Living Children AB spontaneous Meds Allergies and Home Medications Allergies Allergy/AdvReac Type Severity Reaction Status Date / Time prochlorperazine edisylate Allergy Severe Anaphylaxsi Verified 02/07/24 06:46 [From Compazine] s prochlorperazine maleate Allergy Severe Anaphylaxsi Verified 02/07/24 06:46 [From Compazine] s Sulfa (Sulfonamide Allergy Intermediate Skin Rash Verified 02/07/24 06:46 Antibiotics) cephalexin AdvReac Intermediate Other (See Verified 02/07/24 06:46 Comment) Home Medications Medication Instructions Recorded Confirmed Type inhalational spacing device #1 ea 12/09/18 10/31/23 Rx (Aerochamber Mini) budesonide-formoterol HFA 160 2 puff inhalation BID PRN SOB 10/27/22 02/07/24 Rx mcg-4.5 mcg/actuation aerosol #10.2 grams inhaler (Symbicort) ondansetron 4 mg disintegrating 4 mg PO Q8H #14 tabs 01/30/24 02/07/24 Rx tablet albuterol sulfate 90 mcg/actuation 1 - 2 puff inhalation Q4H PRN ##1 02/03/24 02/07/24 Rx aerosol inhaler (ProAir HFA) hydrochlorothiazide 25 mg tablet 25 mg PO QAM #90 tabs 02/03/24 02/07/24 Rx losartan 100 mg tablet 100 mg PO DAILY #90 tabs 02/03/24 02/07/24 Rx Exam Const Other: PHYSICAL EXAM GENERAL APPEARANCE: Alert, healthy appearance, oriented, x 3,? in no acute distress HYDRATION: Well hydrated HEAD, EYES, EARS, NECK, THROAT: Head is normocephalic, pupils equal, round, reactive to light and accommodation, ocular movement intact, sclera clear and no jaundice. ?Dentition intact. LUNGS: normal respiration/normal chest excursion. ?Clear to auscultation bilaterally. ?No wheeze. ?HEART: Regular rate and rhythm. no murmurs ABDOMEN: soft and non-tender to palpation.? Normal bowel sounds.? Time Spent Time spent with Patient: <40 minutes Time was spent: preparing to see the patient(eg.review tests), obtaining and/or reviewing separately otained hiistory, ordering medications,tests, procedures, referring, communicating with other health director of patient care, indepentently interpreting results, counseling the patient and care coordination
--- NOTE | 2024-02-06 11:19 | PDOC.DSDIS_ITS ---
Date of service: 02/07/24 Time of Service: 08:15 Discharge Plan Disposition Patient Disposition: Home Condition: Good Discharge Details Reason For Visit: colon scope Attending Provider: Margarita Rae Primary Care Provider: Cordell Ortega Home Meds and New Rx's Prescriptions: Continued (DME) Aerochamber Mini spacer See Dose Instructions .ROUTE .MEDSUPPLY Qty: 1 0RF Dose Instruction: As directed Rx Instructions: As directed budesonide-formoterol [Symbicort] 160-4.5 mcg/actuation HFA aerosol inhaler 2 puff Inhalation BID PRN (Reason: SOB) Qty: 10.2 0RF ondansetron 4 mg tablet,disintegrating 4 mg PO Q8H Qty: 14 0RF albuterol sulfate [ProAir HFA] 90 mcg/actuation HFA aerosol inhaler 1 - 2 puff Inhalation Q4H PRN Qty: 1 0RF hydrochlorothiazide 25 mg tablet 25 mg PO QAM Qty: 90 0RF losartan 100 mg tablet 100 mg PO DAILY Qty: 90 0RF Discontinued polyethylene glycol 3350 17 gram/dose powder 238 g PO ONCE Qty: 238 0RF Rx Instructions: take per colonoscopy instructions bisacodyl [Dulcolax (bisacodyl)] 5 mg tablet,delayed release (DR/EC) 5 mg PO ONCE Qty: 4 0RF Rx Instructions: take per colonoscopy instructions Discharge Instructions Additional Instructions: [facility] Colonoscopy Post- Op Instructions Instructions for Everyone who is given Anesthesia: For your safety, please do the following for the next twenty-four (24) hours: *Do Not operate a motor vehicle (car, truck, motorcycle, etc.) *Do Not drink alcoholic beverages or use any recreational drugs for the first 24 hours or while taking pain medications. The medications in your body may have a reaction that can be dangerous. *Do Not make any important decisions or sign any important papers. Findings: Minor diverticular disease-make sure you are moving your bowels on a regular basis and you are not straining to go to the bathroom. If you find you are having problems with constipation or straining, then you should consider starting a fiber supplement such as Metamucil. Small polyp in rectum Follow up: My office will send you a letter in 2 to 3 weeks time with the results of the pathology and when we want you to repeat the colonoscopy. 1. No lifting over 20 pounds or strenuous activity for the first 24 hours after your procedure. After 24 hours there are no restrictions on your activity but you may feel fatigued for a few days. 2. After you arrive home you may have a light meal and return to your normal diet as you can tolerate it without feeling sick to your stomach. 3. You may have a bloated, gaseous feeling in your belly (abdomen) after a colonoscopy. Passing gas and belching will help. Walking or lying down on your left side with your knees flexed may relieve the discomfort. Call the office at [phone] (Office) or [phone] (Hospital) right away if you notice any of the following: a.Vomiting of blood or ?coffee ground stools?. b.Rectal bleeding 1Tbsp, blood clots or continuous bleeding. c.Severe belly (abdominal) pain. d.A hard distended belly (abdomen) and an inability to pass gas. 4. Please don?t expect to have a normal BM (bowel movement) for 2-3 days after your procedure. 5. If there are questions regarding the findings of your procedure, please contact your doctor 6. If you are unable to contact your doctor with a problem, contact the hospital at [phone]. 7. Continue all your regular medications unless directed otherwise. I understand the above instructions and have no questions. Signature of Patient or Adult Escort Name of Responsible Adult Escort Signature of Nurse Date/Time Activity:: see above Diet:: see above Discharge Orders Discharge Orders: Discharge Order (Routine); Ordered 02/07/24 Ordered By: Margarita Rae DS: Diagnosis Discharge Diagnosis (1) Hypertension: Status: Chronic (2) Prediabetes: Status: Acute (3) Cholelithiasis: Status: Acute (4) Elevated LFTs: Status: Acute (5) Change in bowel movement: Status: Acute (6) Diverticula of colon: Status: Acute Asessment and Plan: The patient is seen and examined after their colonoscopy.? The patient has been able to pass gas.? They are not having abdominal pain.? They have been able to tolerate liquids and a snack.? They do not have any nausea or vomiting.? They are not having any chest pain or shortness of breath.??? They are not having any rectal bleeding. Their vital signs have been stable-see nursing notes. We discussed findings during their colonoscopy, and any biopsies that were done/polyps that were removed. The patient will be sent a letter with any biopsy results, and when to repeat the colonoscopy.-see discharge instructions. Patient was given explicit instructions to follow-up regarding colonoscopy-refer to discharge instructions.? We reviewed resumption of medications. Patient verbalized understanding and discharged in stable and satisfactory condition- See nursing notes. (7) Chronic diarrhea: Status: Acute (8) LLQ abdominal pain: Status: Acute (9) Unspecified asthma, uncomplicated: Status: Acute (10) Postmenopausal: Status: Acute (11) Hyperlipidemia:
[2024-02-07 06:25] VITALS: BP 153/71; PULSE 99; RESP 16; TEMP 36.5; O2SAT 97
[2024-02-07] MEDS: Lactated Ringers 1,000 ML 80 ML IV (07:11)
--- NOTE | 2024-02-07 07:25 | W.ANESPRE ---
General Info Date of Service Date Performed: 02/07/24 Height: 5 ft 2 in Weight: 80.3 kg Body Mass Index (BMI): 32.3 Surgical Procedure: Operation Date: 02/07/24 07:35 Proposed Procedure Side Surgeon p Colonoscopy Margarita Rae DO Actual Procedure Side Surgeon p Colonoscopy Not Applicable Margarita Rae DO Pre-Op Diagnosis Post-Op Diagnosis colon scope Meds Allergies and Home Medications Allergies Allergy/AdvReac Type Severity Reaction Status Date / Time prochlorperazine edisylate Allergy Severe Anaphylaxsi Verified 02/07/24 06:46 [From Compazine] s prochlorperazine maleate Allergy Severe Anaphylaxsi Verified 02/07/24 06:46 [From Compazine] s Sulfa (Sulfonamide Allergy Intermediate Skin Rash Verified 02/07/24 06:46 Antibiotics) cephalexin AdvReac Intermediate Other (See Verified 02/07/24 06:46 Comment) Home Medication Medication Instructions Recorded inhalational spacing device #1 ea 12/09/18 (Aerochamber Mini) budesonide-formoterol HFA 160 2 puff inhalation BID PRN SOB 10/27/22 mcg-4.5 mcg/actuation aerosol #10.2 grams inhaler (Symbicort) ondansetron 4 mg disintegrating 4 mg PO Q8H #14 tabs 01/30/24 tablet albuterol sulfate 90 mcg/actuation 1 - 2 puff inhalation Q4H PRN ##1 02/03/24 aerosol inhaler (ProAir HFA) hydrochlorothiazide 25 mg tablet 25 mg PO QAM #90 tabs 02/03/24 losartan 100 mg tablet 100 mg PO DAILY #90 tabs 02/03/24 Current Visit Medications: Current Medications Generic Name Dose Route Start Last Admin Trade Name Freq PRN Reason Stop Dose Admin Hyoscyamine Sulfate 0.125 mg 02/07/24 11:00 Hyoscyamine 0.125 Mg Sl/Oral/Chew SL 03/08/24 10:59 DIRECTED PRN Ringer's Solution 1,000 mls @ 80 mls/hr 02/07/24 06:00 02/07/24 07:11 IV 03/07/24 23:59 80 mls/hr INFUSION ERNIE Administration IV Miscellaneous Supplies 1 each 02/07/24 06:00 Iv Access IV 03/07/24 23:59 DIRECTED ERNIE Ondansetron HCl 4 mg 02/07/24 11:00 Ondansetron 4 Mg/2 Ml Vial IVP 03/08/24 10:59 Q4H PRN PRN Nausea / Vomiting Sodium Chloride 0 ml 02/07/24 06:00 Normal Saline Flush 10 Ml Syr IV 03/07/24 23:59 PRN PRN Sodium Chloride 0 ml 02/07/24 06:00 Normal Saline 10 Ml Vial IJ 03/07/24 23:59 DIRECTED PRN Sterile Water 0 ml 02/07/24 06:00 Water,Injection,Sterile 10 Ml Vial IJ 03/07/24 23:59 DIRECTED PRN PFSH Active Problems Active Problems: Problem Status Onset Code Chronic diarrhea K52.9 Diverticula of colon K57.30 Change in bowel movement R19.8 Pelvic pain R10.2 Shortness of breath on exertion R06.02 Postmenopausal Z78.0 Elevated LFTs R79.89 LLQ abdominal pain R10.32 Prediabetes R73.03 Cholelithiasis K80.20 Unspecified asthma, uncomplicated J45.909 Hypertension Medical History Medical History COVID 08/2021, after immunization, no s/s Hemangioma of liver MRI 06/2021-mri reveals hemangioma 1.5 cm in size, no further imaging indicated based on small size Thyroiditis (03/23/15) elevated FT4 and very low thyroid uptake on scan 2020- TSH wnl 3.0 Menopausal syndrome (07/22/12) Family hx-breast malignancy fathers grandmother Endometrial hyperplasia without atypia, 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) Hyperlipidemia Surgical History Surgical History History of section x2 History of bilateral ligation of fallopian tubes Tobacco Smoking/Tobacco Use Status: Former Tobacco Use Passive smoking exposure: Yes Second hand exposure: Yes Alcohol Alcohol Intake: never Substance Use Substance use: Never Substance use type: does not use Prental History History 2 Para Hx # Term Pregnancies 2 Multiple births Hx # Pregnancies Ectopic pregnancies AB induced Hx Number of Living Children AB spontaneous Vital Signs and Lab Results Vital Signs Most Recent Vital Signs in EMR: Most Recent Vital Signs Temp Pulse Resp BP Pulse Ox 36.5 C 99 H 16 153/71 H 97 02/07/24 06:25 02/07/24 06:25 02/07/24 06:25 02/07/24 06:25 02/07/24 06:25 Lab Results Blood Type / Crossmatch: No Data to Display Complete Blood Count: No Data to Display Complete Metabolic Panel: No Data to Display Liver Function Panel: No Data to Display Coagulation Panel: No Data to Display Cardiac Panel: No Data to Display Arterial Blood Gas: No Data to Display Venous Blood Gas: No Data to Display Pancreas Panel: No Data to Display Thyroid Panel: No Data to Display Infectious Disease: No Data to Display Blood Cultures: No Data to Display Toxicology Panel: No Data to Display Anesthesia Assessment and Plan Anesthesia History Personal History: No History of Anesthesia Complications Family History: No Family History of Anesthesia Complications Exercise Tolerance Exercise Tolerance: Metabolic Equivalents>4 Pertinent Negatives Pertinent Negatives: No Symptoms of GERD Cardiac & Pulmonary Exam Cardiac Exam: Normal S1/S2 Heart Sounds Pulmonary Exam: Clear Bilateral Breath Sounds Implantable Cardiac Device Does patient have a Pacemaker or an ICD?: No Airway Exam Known Difficult Airway: No Mallampati Class: 2 Mouth Opening: Normal (> 3cm) Thyromental Distance: Greater than 3 cm Neck Range of Motion: Full ROM Neck Circumference: Normal Teeth Condition: Normal Dentition ASA Classification ASA Score: ASA 2 Emergency Case?: No NPO Status NPO Status: NPO Clears >2 hours, Solids >8 hours Anesthesia Plan Resuscitation Status: Full Code Anesthesia Technique: General Anesthesia Airway Planned: Natural Airway Monitors Used: Standard Monitors
[2024-02-07 07:26] VITALS: BMI 32.3
--- NOTE | 2024-02-07 07:55 | BOWEL_PTH ---
PATIENT: Lenora Joy LOC: [facility] U#:[id number] AGE/SX: 63/F ROOM: RE02/07/[address]: Margarita Rae : 1960 BED: DIS: 02/07/2024 SPEC #: [id number] RECD: 02/07/24 12:35 STATUS: ARMAAN REQ #: [id number] RANDOLPH: 02/07/24 07:[address]: Margarita Rae DEPT: Surgical Specimen RECD BY: Noris Wright ENTERED: 02/07/24 12:36 SP TYPE: Bowel OTHR DR: Cordell Jones, KATH Tissues: 1 - BIOPSY BOWEL Procedures: GROSS AND MICRO LEVEL 4 Comments: [id number]
[2024-02-07 08:05] VITALS: BP 136/65; PULSE 65; RESP 16; TEMP 36.2; O2SAT 99
--- NOTE | 2024-02-07 08:07 | W.ANESPOSTOP ---
Postoperative Evaluation Date, Time and Location Date Performed: 02/07/24 Time Performed: 08:08 Patient Location: Day Surgery Unit Vital Signs Most Recent Imported Vital Signs: Most Recent Vital Signs Temp Pulse Resp BP Pulse Ox 36.2 C L 65 16 136/65 99 02/07/24 08:05 02/07/24 08:05 02/07/24 08:05 02/07/24 08:05 02/07/24 08:05 Pain Score Most Recent Pain Score: Most Recent Pain Score Pain Level 0 02/07/24 08:05 Assessment Mental Status: Awake (Alert & Oriented to Patient Baseline) Airway and Respiratory Function: Patent airway with normal (patient baseline) respiratory exam Cardiovascular Function: Hemodynamically Stable Hydration Status: Adequately Hydrated Nausea & Vomiting: No Nausea or Vomiting Pain: Pt. Denies Any Pain Peripheral Nerve Block: Patient did not receive a nerve block
[2024-02-07 08:35] VITALS: BP 158/68; PULSE 62; RESP 16; TEMP 36.5; O2SAT 97
== END 2024-02-07 08:56 | disposition home or self-care (01) ==
LOC: SUR 06:20
PROVIDERS: PCP Nurse Practitioner Family; Visit Provider Surgery
PROC: 0DJD8ZZ Inspection of Lower Intestinal Tract, Via Natural or Artificial Opening Endoscopic (ICD-10-PCS; CPT 45378; principal; 2024-02-07 07:30)
DX: Z12.11 Encounter for screening for malignant neoplasm of colon (principal); K62.1 Rectal polyp; K57.30 Diverticulosis of large intestine without perforation or abscess without bleeding; R10.2 Pelvic and perineal pain; J45.909 Unspecified asthma, uncomplicated; I10 Essential (primary) hypertension; R19.8 Other specified symptoms and signs involving the digestive system and abdomen; K62.89 Other specified diseases of anus and rectum
CPT/HCPCS: 45380; 88305; J2001; J2704

== ENCOUNTER → 2024-02-21 13:58 | Outpatient (CLI) | payer BC, SELFPAY ==
--- NOTE | 2024-02-21 10:20 | DI.RAD_ITS ---
Exam(s) XR CHEST 2V PA LATERAL EXAM: XR CHEST 2V PA LATERAL CLINICAL HISTORY: evaluate pathology URI [id number] TECHNIQUE: 2D digital imaging was performed. Two views. COMPARISON: CR CHEST 2 VIEWS PA,LAT from 03/23/[address] CHEST/ABD/PEL W from 07/01/2021 FINDINGS: HEART: Normal size. Aorta: Not dilated. PULMONARY VASCULATURE: Normal. LUNGS: Question faint patchy infiltrate in the right upper. PLEURAL SPACE: No pleural effusion or pneumothorax. BONE:Unremarkable for age. Soft tissues: Unremarkable. IMPRESSION: Question of right upper lobe infiltrate. DATA REPOSITORY: RADIATION DOSE DELIVERED:
== END ==
PROVIDERS: PCP Nurse Practitioner Family; Visit Provider Nurse Practitioner Family
DX: J06.9 Acute upper respiratory infection, unspecified (principal); R91.8 Other nonspecific abnormal finding of lung field
CPT/HCPCS: 71046

== ENCOUNTER 2024-05-20 01:36 | Outpatient (CLI) | payer BC, SELFPAY ==
[2024-05-20 12:25] LABS: Anion Gap 8.1 mmol/L (3-11); BUN 15 mg/dL (7-18); CO2 30.9 mmol/L (21.0-32.0); CREATININE 0.6 mg/dL (0.55-1.02); Calcium 9.2 mg/dL (8.5-10.1); Chloride 103 mmol/L (98-107); Glucose 99 mg/dL (74-106); Potassium 3.5 mmol/L (3.5-5.1); Sodium 142 mmol/L (136-145)
[2024-05-20 12:36] LABS: Hemoglobin A1C 5.8 % (<5.7)
== END 2024-05-20 01:37 | disposition home or self-care (01) ==
LOC: LOS 01:37
PROVIDERS: PCP Nurse Practitioner Family; Visit Provider Nurse Practitioner Family
DX: R73.03 Prediabetes (principal); I10 Essential (primary) hypertension
CPT/HCPCS: 36415; 80048; 83036

== ENCOUNTER 2024-09-25 01:09 | Outpatient (CLI) | payer BC, SELFPAY ==
--- NOTE | 2024-09-25 11:52 | DI.MAMMO_ITS ---
Exam(s) MAMMO SCREENING EXAM: MAMMO SCREENING CLINICAL HISTORY: screening,z12.39 TECHNIQUE: Mammograms were interpreted according to the usual protocol including computer analysis w [employer] CAD system, tomosynthesis and C-view imaging. COMPARISON: 2014 through 2022 FINDINGS: The breasts are composed of mainly fatty density , Breast Density category A. No suspicious masses or suspicious microcalcifications are seen. No skin thickening or abnormal axillary lymph nodes are seen. There has been no significant change from prior exams. IMPRESSION: BI-RADS Category 1, Negative mammogram Yearly screening mammography is recommended. Breast Density - Category A, fatty density. A negative radiographic report should not delay biopsy if a dominant or clinically suspicious mass is present. Up to ten percent of cancers are not identified on mammography. A negative report may reinforce clinical impression. Adenosis and dense breasts may obscure an underlying neoplasm. False positive reports average 6 to 10%. Patient will receive a letter notifying them of these results.
== END 2024-09-25 01:29 ==
LOC: DI 01:09
PROVIDERS: PCP Nurse Practitioner Family; Visit Provider Nurse Practitioner Family
DX: Z12.31 Encounter for screening mammogram for malignant neoplasm of breast (principal)
CPT/HCPCS: 77063; 77067

== ENCOUNTER 2024-11-30 03:56 | Outpatient (CLI) | payer BC, SELFPAY ==
[2024-11-30 10:17] LABS: Abs Immature Grans 0.02 10^3/uL (0.0-0.06); Absolute Basophil Count 0.07 10^3/uL (0.0-0.2); Absolute Eosinophil Count 0.35 10^3/uL (0.0-0.7); Absolute Lymphocyte Count 2.21 10^3/uL (1.2-3.4); Absolute Monocyte Count 0.61 10^3/uL (0.1-0.8); Absolute Neutrophil Count 3.34 10^3/uL (1.2-6.7); Basophils % 1.1 %; Eosinophils % 5.3 %; HCT 44.3 % (36.0-46.0); HGB 14.8 g/dL (11.2-15.7); Immature Grans % 0.3 %; Lymphocytes % 33.5 %; MCH 31.2 pg (27.0-33.0); MCHC 33.4 % (32.0-36.0); MCV 93 fL (80-95); MPV 10.8 fL (8.0-11.0); Monocytes % 9.2 %; Neutrophils % 50.6 %; Platelet Count 258 10^3/uL (130-400); RBC 4.75 10^6/uL (3.93-5.22); RDW 12.8 % (11.7-14.6); RDW-SD 44.1 fL
== END 2024-11-30 03:57 | disposition home or self-care (01) ==
LOC: LOS 03:56
PROVIDERS: PCP Nurse Practitioner Family; Visit Provider Surgery
DX: K80.20 Calculus of gallbladder without cholecystitis without obstruction (principal); R79.89 Other specified abnormal findings of blood chemistry; K52.9 Noninfective gastroenteritis and colitis, unspecified; R10.32 Left lower quadrant pain; Z01.818 Encounter for other preprocedural examination
CPT/HCPCS: 36415; 85025

== ENCOUNTER 2025-03-23 06:11 | Day surgery (SDC) | payer BC, SELFPAY ==
--- NOTE | 2025-03-22 16:40 | PDOC.DSDIS_ITS ---
Date of service: 03/23/25 Discharge Plan Disposition Patient Disposition: Home Condition: Good Discharge Details Reason For Visit: Laparoscopic cholecystectomy Attending Provider: Osvaldo Doll Primary Care Provider: Cordell Ortega Home Meds and New Rx's Prescriptions: New tramadol 50 mg tablet 50 mg PO Q8H PRNQty: 12 0RF Rx Instructions: Take 1 tablet by mouth up to every 8 hours if needed for more severe pain Continued hydrochlorothiazide 25 mg tablet 25 mg PO QAM Qty: 90 4RF losartan 100 mg tablet 100 mg PO DAILY Qty: 90 4RF Saccharomyces boulardii [Daily Probiotic (S. boulardii)] 250 mg capsule 250 mg PO DAILY (DME) Aerochamber Mini spacer See Dose Instructions .ROUTE .MEDSUPPLY Qty: 1 0RF Dose Instruction: As directed Rx Instructions: As directed albuterol sulfate 90 mcg/actuation HFA aerosol inhaler 1 - 2 puff Inhalation Q4H PRN Qty: 1 0RF budesonide-formoterol [Symbicort] 160-4.5 mcg/actuation HFA aerosol inhaler 2 puff Inhalation BID PRN (Reason: SOB) Qty: 10.2 0RF ondansetron 4 mg tablet,disintegrating 4 mg PO QD-BID PRN Patient Comments: pt. has this from previous colo bowel prep, states she was told she could take this post op after lap ewa for nausea control. Pt. instructed to f/u with Dr. Doll before taking Discharge Instructions Instructions: Cholecystectomy, Laparoscopic Surgery Additional Instructions: Lenora, it was a pleasure meeting you today, and I hope you make a quick recovery after your cholecystectomy. Things went very smoothly. There were some adhesions, or scar tissue around the gallbladder, which is extremely consistent for patients that have had chronic and intermittent inflammation of the gallbladder secondary to stones. Hopefully, this will provide relief and protection for years to come. Expect to get some bruising over the incision sites. That is extremely common, nothing to worry about. I would like to know if any of the incisions turn bright red, or drain any foul-smelling fluid. I do not expect that to happen, but we can certainly work through it if you have any issues. Please keep your lifting relatively restricted over the next few weeks. I typically recommend just a gallon of milk or less until we see each other in the office and check up on all the incisions. You should be up and moving around, however, getting a little bit of basic exercise each day. Like we talked about beforehand, although I do not technically restrict your diet at all after this operation, many of the changes that you have already made are quite beneficial for your health overall, and I would encourage you to keep that up as best you can. I did put in a prescription for some stronger pain medication if Tylenol and ibuprofen are not sufficient in the first few days. If you need anything, or have any questions at all, please do not hesitate to call at any point. 1. Resume all of your regular medications. 2. Use ice packs over the incisions to help with pain and swelling. 3. Alternate [id number] Tylenol and ibuprofen every 6 hours for the first 2 days, then use them as needed. Use the prescription for tramadol if needed for more severe pain. 4. Leave bandages in place for 24 hours, then remove. 5. Shower with warm soapy water. Pat dry. Use a bandaids if needed to protect your clothing. 6. No soaking or tub baths until I see you in the office. 7. No heavy lifting until I see you in the office. 8. Call the office (or go directly to the emergency room after hours) if you notice any of the following: Develop chills (warm to touch), or if you have a thermometer and your temperature is above 101 Difficulty breathing or difficultly swallowing Persistent vomiting Any bleeding ? exceeding one tablespoon 9. Call your physician if the site where your intravenous was started becomes red, swollen, painful, and warm to touch. Stand Alone Forms: Anesthesia Discharge InstYola, Khari Carrillo ([facility]) Referrals: Vira Jewell PA [[facility]] - 04/08/25 10:00 am Activity:: No heavy lifting Remove Dressings/Wound Care:: 24 hours Shower/Bathe:: 24 hours Diet:: As Tolerated Discharge Orders Discharge Orders: Discharge Order (Routine); Ordered 03/22/25 Ordered By: Osvaldo Doll DS: Diagnosis Discharge Diagnosis (1) Biliary colic: Status: Acute Asessment and Plan: S/p cholecystectomy; outpatient postoperative follow-up
--- NOTE | 2025-03-22 16:42 | W.PM.OP ---
Operative Note Operative Note PRE-OP DIAGNOSIS: Biliary colic POST-OP DIAGNOSIS: other (Chronic cholecystitis) PROCEDURE: Laparoscopic cholecystectomy SURGEON: Osvaldo Doll BALL POINT SPLITTER: Vira Jewell ANESTHESIA TYPE: General LMA/ETT Refer to Anesthesia Record ESTIMATED BLOOD LOSS: 25 PATHOLOGY: other (Gallbladder) COMPLICATIONS: None Patient was transported to: PACU Patient's condition: stable Indications: Lenora is a 64-year-old woman with symptomatic biliary colic Findings: Mild adhesions of the gallbladder infundibulum consistent with chronic cholecystitis Procedure Description: After satisfactory induction of general anesthesia, I prepped and draped the abdomen in usual fashion. Next, I began with a periumbilical incision. Using a 5 mm optical viewing port, I entered the peritoneum under direct vision and establish pneumoperitoneum. Next I inserted a 5 mm 30 degree scope and examined the underlying viscera. There was no evidence of injury created upon entry. I then placed the patient in some reverse Trendelenburg and left side down positioning. Then, with the assistance of the laparoscope, I used local anesthetic to anesthetize the midepigastric and 2 right upper quadrant port sites. Under the vision of the laparoscope, I passed 3 more 5 mm ports. The umbilical port was then upsized to 12 mm. I then turned my attention to the gallbladder dome and elevated it cephalad. With the assistance of indocyanine green, I began by dissecting the gallbladder infundibulum. I worked in a lateral to medial fashion. Once I skeletonized the cystic duct and cystic artery, with a satisfactory critical view of safety, I doubly clipped and divided them. I then used electrocautery to dissect the gallbladder off the gallbladder fossa. I did create a small defect on the back wall of the gallbladder with minimal spillage of bile. It was recognized and controlled immediately. Suction device was used to remove the bile. There was no spillage of any stones. I completed dissecting the gallbladder free, and I passed the gallbladder into an Endo Catch bag and removed it by way of the umbilical site. The site did have to be enlarged a bit to accommodate a large gallstone. I examined the surgical field. It was hemostatic. I irrigated everything clean. The umbilical port was then closed with a Juan Diego Sanders wound closure system using interrupted Vicryl stitches. The remaining 5 mm ports were removed, and the sites were irrigated, and the skin was closed with subcuticular stitches. Bandages were applied, patient was awakened from anesthesia, and transferred to the recovery unit. Date of Procedure: 03/23/25
[2025-03-23] VITALS (24 sets, daily range): BP systolic 142–160; BP diastolic 41–78; PULSE 56–78; RESP 14–22; TEMP 36–36.5; O2SAT 91–99; BMI 29.2
[2025-03-23] MEDS: Gabapentin 300 MG CAP 600 MG PO (06:42)
[2025-03-23] MEDS: Acetaminophen 500 MG TAB 1000 MG PO (06:43)
--- NOTE | 2025-03-23 07:05 | W.ANESPRE ---
General Info Date of Service Date Performed: 03/23/25 Height: 5 ft 1.5 in Weight: 71.2 kg Body Mass Index (BMI): 29.2 Surgical Procedure: Operation Date: 03/23/25 07:55 Proposed Procedure Side Surgeon p Cholecystectomy Laparoscopic possible Open Osvaldo Doll MD Actual Procedure Side Surgeon p Cholecystectomy Laparoscopic possible Open Not Applicable Osvaldo Doll MD Pre-Op Diagnosis Post-Op Diagnosis Gallstones Meds Allergies and Home Medications Allergies Allergy/AdvReac Type Severity Reaction Status Date / Time prochlorperazine edisylate Allergy Severe Anaphylaxsi Verified 03/23/25 06:38 (From Compazine) s prochlorperazine maleate Allergy Severe Anaphylaxsi Verified 03/23/25 06:38 (From Compazine) s Sulfa (Sulfonamide Allergy Intermediate Skin Rash Verified 03/23/25 06:38 Antibiotics) cephalexin AdvReac Intermediate Other (See Verified 03/23/25 06:38 Comment) Home Medication ?Medication ?Instructions ?Recorded inhalational spacing device #1 ea 12/09/18 (Aerochamber Mini) albuterol sulfate 90 mcg/actuation 1 - 2 puff inhalation Q4H PRN ##1 08/10/24 aerosol inhaler budesonide-formoterol HFA 160 2 puff inhalation BID PRN SOB 08/10/24 mcg-4.5 mcg/actuation aerosol #10.2 grams inhaler (Symbicort) Saccharomyces boulardii 250 mg 250 mg PO DAILY 11/26/24 capsule (Daily Probiotic (S. boulardii)) hydrochlorothiazide 25 mg tablet 25 mg PO QAM #90 tabs 03/01/25 losartan 100 mg tablet 100 mg PO DAILY #90 tabs 03/01/25 ondansetron 4 mg disintegrating 4 mg PO QD-BID PRN 03/19/25 tablet Current Visit Medications: Current Medications Generic Name Dose Route Start Last Admin Trade Name Freq PRN Reason Stop Dose Admin Acetaminophen 1,000 mg 03/23/25 06:00 03/23/25 06:43 Acetaminophen 500 Mg Tab PO 03/23/25 23:59 1,000 mg PREOP ERNIE Administration Gabapentin 600 mg 03/23/25 06:00 03/23/25 06:42 Gabapentin 300 Mg Cap PO 03/23/25 23:59 600 mg PREOP ERNIE Administration Hydromorphone HCl 0.2 mg 03/22/25 16:43 Hydromorphone 2 Mg/Ml Syr IVP 04/21/25 16:42 Q1H PRN PRN Ringer's Solution 1,000 mls @ 80 mls/hr 03/23/25 06:00 IV 03/23/25 23:59 INFUSION ERNIE Clindamycin Phosphate/Dextrose 600 mg in 50 mls @ 100 mls/hr 03/23/25 06:00 Cleocin In D5w IVPB 03/23/25 23:59 PREOP ERNIE IV Miscellaneous Supplies 1 each 03/23/25 06:00 Iv Access IV 03/23/25 23:59 DIRECTED ERNIE Indocyanine Green 5 mg 03/23/25 06:00 Indocyanine Green 25 Mg Vial IVP 03/23/25 23:59 DIRECTED ERNIE Sodium Chloride 0 ml 03/23/25 06:00 Normal Saline Flush 10 Ml Syr IV 03/23/25 23:59 PRN PRN Sodium Chloride 0 ml 03/23/25 06:00 Normal Saline 10 Ml Vial IJ 03/23/25 23:59 DIRECTED PRN Sterile Water 0 ml 03/23/25 06:00 Water,Injection,Sterile 10 Ml Vial IJ 03/23/25 23:59 DIRECTED PRN Tramadol HCl 50 mg 03/22/25 16:43 Tramadol 50 Mg Tab PO 04/21/25 16:42 Q6H PRN PRN Pain PFSH Active Problems Active Problems: Problem Status Onset Code Biliary colic Acute K80.50 Preop testing Acute Z01.818 Hearing loss Acute H91.90 Hyperplastic colon polyp Acute ~01/2024 K63.5 Chronic diarrhea Acute K52.9 Diverticula of colon Acute K57.30 Change in bowel movement Acute R19.8 Pelvic pain Acute R10.2 Shortness of breath on exertion Acute R06.02 Postmenopausal Acute Z78.0 Elevated LFTs Acute R79.89 LLQ abdominal pain Acute R10.32 Prediabetes Acute R73.03 Cholelithiasis Acute K80.20 Unspecified asthma, uncomplicated Acute J45.909 Hypertension Chronic Medical History Medical History COVID 08/2021, after immunization, no s/s Hemangioma of liver MRI 06/2021-mri reveals hemangioma 1.5 cm in size, no further imaging indicated based on small size Thyroiditis (03/23/15) elevated FT4 and very low thyroid uptake on scan 2020- TSH wnl 3.0 Menopausal syndrome (07/22/12) Family hx-breast malignancy fathers grandmother Endometrial hyperplasia without atypia, 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) Hyperlipidemia Medical History Comments:: hard IV stick requests ultrasound Surgical History Surgical History History of colonoscopy (~01/2024) path sent History of section x2 History of bilateral ligation of fallopian tubes Tobacco Smoking/Tobacco Use Status: Former Tobacco Use Passive smoking exposure: Yes Second hand exposure: Yes Alcohol Alcohol Intake: never Substance Use Substance use: Never Substance use type: does not use Prental History History 2 Para Hx # Term Pregnancies 2 Multiple births Hx # Pregnancies Ectopic pregnancies AB induced Hx Number of Living Children AB spontaneous Vital Signs and Lab Results Vital Signs Most Recent Vital Signs in EMR: Most Recent Vital Signs Temp Pulse Resp BP Pulse Ox 36.5 C 78 16 154/78 H 99 03/23/25 06:30 03/23/25 06:30 03/23/25 06:30 03/23/25 06:30 03/23/25 06:30 Lab Results Blood Type / Crossmatch: No Data to Display Complete Blood Count: No Data to Display Complete Metabolic Panel: Hemoglobin A1c 5.6 % (4.5-5.7) 03/01/25 10:47 Liver Function Panel: No Data to Display Coagulation Panel: No Data to Display Cardiac Panel: No Data to Display Arterial Blood Gas: No Data to Display Venous Blood Gas: No Data to Display Pancreas Panel: No Data to Display Thyroid Panel: No Data to Display Infectious Disease: No Data to Display Blood Cultures: No Data to Display Toxicology Panel: No Data to Display Imaging and Studies Imaging and Studies Study information below may be from another EMR and interpreted by another provider. Please see original notes in EMR for more complete details. EKG Summary: 05/15/23 Conclusion Sinus rhythm...normal P axis, V-rate 50- 99 Normal Electrocardiogram Echocardiogram Summary: 07/16/23 Conclusion Normal left ventricular wall thickness and chamber size. Ejection fraction is 55% Wall motion is normal Normal right ventricular size and systolic function The atria are normal in size There is no structural or hemodynamically significant valvular disease Estimated right ventricular systolic pressure is 14 mmHg Carotid Artery Summary:: 03/20/17 CAROTID ULTRASOUND: There is bilateral intimal thickening, most prominent in the mid right common carotid artery. Minimal calcific plaque is noted in the carotid bulb and internal and external carotid arteries. There is no significant right or left carotid stenosis. Bilateral antegrade flow is noted in the vertebrals. SUMMARY: There is no evidence of significant carotid stenosis. Pulmonary Function Summary: APRIL 16, 2016 REQESTING PROVIDER: Dr. Gerson Guzmán SPIROMETRY: Shows no evidence of obstructive airways disease. No bronchodilator response. LUNG VOLUMES: Shows no evidence of restriction. DIFFUSION CAPACITY: Normal. AIRWAYS RESISTANCE: Mildly elevated. IMPRESSION: Normal evidence of obstructive or restrictive lung disease. Normal diffusion capacity. There is mildly elevated airways resistance as an isolated finding which could be representing effort related phenomenon but can also sometimes be seen with early developing obstructive lung disease. Therefore, clinical correlation is recommended. Anesthesia Assessment and Plan Anesthesia History Personal History: No History of Anesthesia Complications Family History: Other Exercise Tolerance Exercise Tolerance: Metabolic Equivalents>4 Pertinent Negatives Pertinent Negatives: No Major Cardiovascular Symptoms or Complaints, No Major Pulmonary Symptoms or Complaints and No History of CVA/TIA Cardiac & Pulmonary Exam Cardiac Exam: Normal S1/S2 Heart Sounds Pulmonary Exam: Clear Bilateral Breath Sounds Implantable Cardiac Device Does patient have a Pacemaker or an ICD?: No Airway Exam Known Difficult Airway: No Mallampati Class: 2 Mouth Opening: Normal (> 3cm) Thyromental Distance: Greater than 3 cm Neck Range of Motion: Full ROM Neck Circumference: Normal Teeth Condition: Normal Dentition ASA Classification ASA Score: ASA 2 Emergency Case?: No NPO Status NPO Status: NPO Clears >2 hours, Solids >8 hours Anesthesia Plan Resuscitation Status: Full Code Anesthesia Technique: General Anesthesia Airway Planned: Endotracheal Tube Monitors Used: Standard Monitors
[2025-03-23] MEDS: Lactated Ringers 1,000 ML 80 ML IV (07:14)
[2025-03-23] MEDS: Indocyanine green 25 MG VIAL 5 MG IVP (07:16)
[2025-03-23] MEDS: Normal Saline Flush 10 ML SYR IV (07:19)
[2025-03-23] MEDS: CLINDAMYCIN 600 MG/50 ML BAG 100 MG IVPB (08:18)
[2025-03-23] MEDS: Bupivacaine 0.25% Pres-Free W/EPI 30 ML VIAL (08:45)
--- NOTE | 2025-03-23 09:10 | GB_PTH ---
PATIENT: Lenora Joy LOC: [facility] U#:[id number] AGE/SX: 64/F ROOM: RE03/23/[address]: Osvaldo Doll MD : 1960 BED: DIS: 03/23/2025 SPEC #: [id number] RECD: 03/23/25 12:45 STATUS: ARMAAN REQ #: [id number] RANDOLPH: 03/23/25 09:[address]: Osvaldo Doll DEPT: Surgical Specimen RECD BY: Noris Wright ENTERED: 03/23/25 12:46 SP TYPE: GB OTHR DR: Cordell Jones DNP Tissues: 1 - GALLBLADDER Procedures: GROSS AND MICRO LEVEL 3 Comments: [id number]
--- NOTE | 2025-03-23 10:49 | W.ANESPOSTOP ---
Postoperative Evaluation Date, Time and Location Date Performed: 03/23/25 Time Performed: 10:49 Patient Location: Day [facility] Unit Vital Signs Most Recent Imported Vital Signs: Most Recent Vital Signs Temp Pulse Resp BP Pulse Ox 36 C L 66 16 151/66 H 96 03/23/25 10:25 03/23/25 10:25 03/23/25 10:03/23/25 10:03/23/25 10:25 Pain Score Most Recent Pain Score: Most Recent Pain Score Pain Level 0 03/23/25 10:25 Assessment Mental Status: Awake (Alert & Oriented to Patient Baseline) Airway and Respiratory Function: Patent airway with normal (patient baseline) respiratory exam Cardiovascular Function: Hemodynamically Stable Hydration Status: Adequately Hydrated Nausea & Vomiting: No Nausea or Vomiting Pain: Pain is tolerable per patient Peripheral Nerve Block: Patient did not receive a nerve block
== END 2025-03-23 11:30 | disposition home or self-care (01) ==
PROVIDERS: PCP Nurse Practitioner Family; Visit Provider Surgery
PROC: 0FT44ZZ Resection of Gallbladder, Percutaneous Endoscopic Approach (ICD-10-PCS; CPT 47562; principal; 2025-03-23 07:45)
DX: K80.50 Calculus of bile duct without cholangitis or cholecystitis without obstruction (principal); K76.89 Other specified diseases of liver
CPT/HCPCS: 47562; 88304; J0737; J1100; J1805; J1885; J2003; J2405; J2704

== ENCOUNTER 2025-10-25 03:55 | Outpatient (CLI) | payer MEDICARE, SELFPAY ==
--- NOTE | 2025-10-25 06:30 | DI.MAMMO_ITS ---
Exam(s) MAMMO SCREENING EXAM: MAMMO SCREENING CLINICAL HISTORY: screening,z12.39. TECHNIQUE: Bilateral full field digital CC and MLO mammographic images were obtained with 3D tomosynthesis and utilizing computer aided detection (CAD). COMPARISON: Prior mammograms were reviewed. FINDINGS: There has been no significant change in the appearance and distribution of the fibroglandular tissue. There are no new spiculated masses nor new malignant appearing microcalcification groups. A few benign microcalcifications are noted in the right breast. There is no significant architectural distortion nor skin thickening-retraction. IMPRESSION: Benign findings. No radiographic evidence of malignancy. BI-RADS Category 2 - Benign Findings Breast Density - Category B - There are scattered areas of fibroglandular density. Breast density Category C or D implies that the patient has dense breast tissue. Dense breast tissue can make it harder to find cancer on a mammogram. Dense breast tissue is also associated with an increased risk of breast cancer. This information about the result of the mammogram report was provided to the patient to raise their awareness. Use this report when you speak with the patient about their risks for breast cancer, which includes their family history. At that time, you may recommend additional screening tests (Ultrasound or MRI) as these tests may add significant information. A negative radiographic report should not delay biopsy if a dominant or clinically suspicious mass is present. Up to ten percent of cancers are not identified on mammography. A negative report may reinforce clinical impression. Adenosis and dense breasts may obscure an underlying neoplasm. False positive reports average 6 to 10%. Patient will receive a letter notifying them of these results.
== END 2025-10-25 04:15 ==
PROVIDERS: PCP Nurse Practitioner Family; Visit Provider Nurse Practitioner Family
DX: Z12.31 Encounter for screening mammogram for malignant neoplasm of breast (principal); R92.323 Mammographic fibroglandular density, bilateral breasts
CPT/HCPCS: 77063; 77067